=== PATIENT | male | born 1945 | race Caucasian/White ===

== ENCOUNTER 2018-12-20 08:27 | Day surgery (SDC) | payer MEDICARE, BC ==
[2018-12-20] MEDS ORDERED: CEFAZOLIN SODIUM IN 0.9 % NACL 2 GM/100 ML BAG IV ONE (08:35)
[2018-12-20] MEDS ORDERED: LACTATED RINGERS 1,000 ML IV ONE ×2 (08:58→11:30)
--- NOTE | 2018-12-20 09:48 | ANESTHESIA ---
Pre-Anesthesia VS, & Labs - Diagnosis Left inguinal hernia - Procedure Left inguinal herniorraphy Vital Signs: Temp Pulse Resp BP Pulse Ox 37 C 72 20 132/77 H 96 12/20/18 08:53 12/20/18 08:53 12/20/18 08:53 12/20/18 08:53 12/20/18 08:53 Height 5 ft 9 in Weight (kg) 90 kg - NPO >8 hours Home Medications and Allergies Home Medications: Ambulatory Orders Acyclovir 200 mg DAILY 12/19/18 Atorvastatin [Lipitor] 10 mg PO DAILY 12/19/18 Celecoxib [CeleBREX] 100 mg PO DAILY 12/19/18 Acyclovir 200 mg DAILY 12/19/18 Atorvastatin [Lipitor] 10 mg PO DAILY 12/19/18 Celecoxib [CeleBREX] 100 mg PO DAILY 12/19/18 Pantprzole Allergies/Adverse Reactions: Allergies Allergy/AdvReac Type Severity Reaction Status Date / Time No Known Drug Allergies Allergy Verified 12/19/18 13:34 Anes History & Medical History - Anesthetic History Anesthesia Complications: reports: No previous complications - Medical History Cardiovascular: reports: Coronary artery disease ([employer]) Pulmonary: reports: Sleep apnea (does not use CPAP) Gastrointestinal: reports: GERD (controlled with medication), Hiatal hernia Urinary: reports: Benign prostate hypertrophy Neuro: reports: Peripheral neuropathy (Kumar. lower feet) Musculoskeletal: reports: Osteoarthritis Endocrine/Autoimmune: reports: None Blood Disorders: reports: None Skin: reports: None Smoking Status: Never smoker Psychosocial: reports: Depression - Surgical History Cardiothoracic: Coronary stent Orthopedic: Knee replacement, Spine surgery (ACDF C4-7, Laminectomy L5-S1), Other Exam General: Alert, Oriented x3, Cooperative, No acute distress Dental: WNL Mouth Openin Fingerbreadth Neck Mobility: Normal Mallampati classification: I Thyromental Distance: greater than 6 cm Respiratory: Lungs clear, Normal breath sounds, No respiratory distress, No accessory muscle use Cardiovascular: Regular rate, Normal S1, Normal S2, No murmurs Mental/Cognitive Status: Alert/Oriented X3, Normal for patient Plan Anesthesia Type: General Consent for Procedure(s) Verified and Reviewed: Yes Code Status: Attempt Resuscitation ASA classification: 3-Severe systemic disease Is this case an emergency?: No
[2018-12-20] MEDS ORDERED: BUPIVACAINE 0.5% PF 10 ML VIAL ONE (10:33)
[2018-12-20] MEDS ORDERED: DEXAMETHASONE 4 MG/ML VIAL IVP ONE (11:30)
[2018-12-20] MEDS ORDERED: KETOROLAC 30 MG/ML VIAL IVP ONE (11:30)
[2018-12-20] MEDS ORDERED: ONDANSETRON 4 MG/2 ML VIAL IVP ONE (11:30)
[2018-12-20] MEDS ORDERED: LIDOCAINE-MPF 2% 5 ML VIAL IM ONE (11:30)
[2018-12-20] MEDS ORDERED: ePHEDrine 50 MG/ML VIAL IVP ONE (11:30)
[2018-12-20] MEDS ORDERED: fentaNYL 100 MCG/2 ML VIAL IVP ONE (11:30)
[2018-12-20] MEDS ORDERED: PROPOFOL 200 MG/20 ML VIAL IVP ONE (11:30)
[2018-12-20] MEDS ORDERED: MIDAZOLAM 2 MG/2 ML VIAL IVP ONE (11:30)
[2018-12-20] MEDS ORDERED: ACETAMINOPHEN 1,000 MG/100 ML 100 ML IV ONE (11:30)
[2018-12-20] MEDS ORDERED: BUPIVACAINE 0.5% PF 10 ML VIAL INFIL ONE ×2 (11:40→12:06)
[2018-12-20] MEDS ORDERED: HYDROcod/ACETAM 5/325 MG TABLET PO PRN (12:21)
[2018-12-20] MEDS ORDERED: ONDANSETRON 4 MG/2 ML VIAL IVP PRN (12:21)
[2018-12-20] MEDS ORDERED: HYDROmorphone 0.5 MG/0.5 ML SYRINGE IVP PRN (12:21)
--- NOTE | 2018-12-20 12:31 | OPERATIVE REPORT ---
Operative Report - General Procedure Date: 12/20/18 Planned Procedure: Left inguinal herniorrhaphy Pre-Op Diagnosis: Left inguinal hernia Procedure Performed: Left indirect inguinal herniorrhaphy with mesh, excision cord lipoma Post Op Diagnosis: Left indirect inguinal hernia, cord lipoma - Procedure Note Primary Surgeon: Roc Mendoza MD Anesthesia Provider: Bret Bryan CRNA Anesthesia Technique: General LMA, Local (30 mL of half percent Marcaine) IV Fluids (mL): 900 Estimated Blood Loss (mL): 5 Drain/Tube Type: Other (None.) Complications: None. - Other Other Information/Narrative: OPERATIVE DESCRIPTION/REPORT: After verbal and written informed consent was obtained detailing the risks of infection, bleeding requiring transfusion with its risks, nerve injury, and , and after I met with the patient confirming the surgery and the site of the surgery and after initialing the site of the surgery with a surgical marker, the patient was brought to the operative suite and placed supine on the operating table. Great care was taken to avoid pressure points to prevent pressure necrosis or nerve injury. Monitoring devices were applied along with TEDs and pneumatic compressive stockings (to prevent DVT). The patient received preoperative antibiotics for surgical prophylaxis. Bret Bryan CRNA sedated and anesthetized the patient for the entire procedure. The patient was prepped and draped in the usual sterile manner. With the patient draped my initials were clearly visible. A "time in" then confirmed that the patient was identified with 3 identifiers (name, date and medical record number), the history and physical was in the chart, the signed consent confirming the procedure was in the chart, the patient was in the correct position, the aforementioned prophylactic measures were in place or given, we had the correct personnel and equipment to complete the procedure and that anesthesia, surgery and nursing were given an opportunity to express any concerns. With the agreement of everyone in the room, we proceeded with the operation. A standard inguinal incision was made and dissection was carried down to the external oblique aponeurosis using a combination of Metzenbaum scissors and Bovie electrocautery. The external oblique aponeurosis was cleared of overlying adherent tissue, and the external ring was delineated. The external oblique was the incised with a scalpel and this incision was carried out to the external ring using Metzenbaum scissors. Having exposed the inguinal canal, the cord structures were from the canal using blunt dissection, and a [place] drain was placed around the cord structures at the level of the pubic tubercle. This Rissa drain was then used to retract the cord structures as needed. Ad herent cremasteric muscle was dissected free from the cord using Bovie electrocautery. The cord was then explored using a combination of sharp and blunt dissection, and the sac was found anteromedially to the cord structures. The sac was exceedingly enlarged and contained both omentum and bowel. The sac was dissected free from the cord structures using a combination of blunt dissection and Bovie electrocautery. Once preperitoneal fat was encountered, the dissection stopped and the sac was replaced back into the abdominal cavity. The hernia was a sliding inguinal hernia. Dissection along the cord structures found a lipoma that was dissected back to the internal ring, ligated with a 3-0 Vicryl, transected, the stump cauterized and allowed to retract back into the abdomen. An extra-large Bard Perfix plug (Ref# [id number], Lot# [id number], use date 2023-10-02) inserted into the internal ring. The plug was secured to the internal ring by interrupted 2-0 PDS sutures. The Bard Perfix enlay patch was then placed on the floor of the inguinal canal and secured in place using interrupted 0 PDS sutures to the conjoined tendon superiorly, pubic tubercle medially, and shelving edge inferiorly. By reinforcing the floor with the enlay patch, a new internal ring was thus formed. The [place] drain was removed. The wound was then irrigated using sterile saline, and hemostasis was obtained using Bovie electrocautery. The incision in the external oblique was approximated using a 3-0 Vicryl in a running fashion, thus reforming the external ring. The fascia and skin was then injected with the 1/2% marcaine for grinder operator tool pain control. The skin incision was approximated with 4-0 Monocryl in a subcuticular fashion. The skin was cleaned of the prep and Dermabond was applied. At this point a time out was performed that confirmed that all the counts were correct, the procedure that was performed, the blood loss, the IV fluids administered, and the patients condition. A dressing was t hen applied. Gentle downward traction ensured that the testes were well seated in the scrotum. Having tolerated the procedure well, the patient was taken to short stay in good and stable condition. Dragon disclaimer: This document was created in part using voice recognition technology. Because of the inherent limitations of the system ([employer] Dict[employer] user manual states that the licensee understands that speech recognition is a statistical process and that recognition errors are inherent in the process), occasional same sounding word substitutions and grammatical errors do occur and persist despite proofreading. Please read this document for context.
[2018-12-20 13:25] VITALS: BP 133/78
== END 2018-12-20 08:28 | disposition home or self-care (01) ==
LOC: SDS 08:27
PROVIDERS: ATTEND Surgery
PROC: 0VBG0ZZ Excision of Left Spermatic Cord, Open Approach (ICD-10-PCS; 2018-12-20)
PROC: 0YU60JZ Supplement Left Inguinal Region with Synthetic Substitute, Open Approach (ICD-10-PCS; principal; 2018-12-20 10:00)
DX: K40.90 Unilateral inguinal hernia, without obstruction or gangrene, not specified as recurrent (principal); D17.6 Benign lipomatous neoplasm of spermatic cord; G47.30 Sleep apnea, unspecified; K21.9 Gastro-esophageal reflux disease without esophagitis; I25.10 Atherosclerotic heart disease of native coronary artery without angina pectoris; N40.0 Benign prostatic hyperplasia without lower urinary tract symptoms
CPT/HCPCS: 49525; 55520; C1781; J0131; J0690; J7120

== ENCOUNTER 2019-02-03 09:00 | Outpatient (CLI) | payer MEDICARE, BC ==
--- NOTE | 2019-02-03 13:46 | Ultrasound Report ---
Reason: TESTICULAR PAIN LEFT Procedure Date: 02/03/2019 Accession Number: [id number] / [id number] Procedure: US - Testicle CPT Code: FULL RESULT: EXAM: SCROTAL ULTRASOUND EXAM DATE: 02/03/2019 10:30 AM. CLINICAL HISTORY: Testicular pain left. COMPARISON: None. TECHNIQUE: Real-time scanning was performed with static images obtained. Color-flow images were utilized. FINDINGS: Right: Testis: 4.1 x 1.8 x 2.9 cm. Normal size and echotexture. No mass, calcification, or abnormal blood flow. Epididymis: 2.6 x 0.6 x 1.6 cm. Normal size and echotexture. No mass or abnormal blood flow. Hydrocele: Small hydrocele. Varicocele: None. Left: Testis: 4.0 x 1.9 x 2.4 cm. Normal size and echotexture. No mass, calcification, or abnormal blood flow. Epididymis: 1.8 x 0.6 x 2.0 cm. There is a benign 7 mm maximal diameter epididymal cyst of no significance. Hydrocele: Moderate hydrocele. Varicocele: Left hydrocele is present. Other: The patient is status post left inguinal hernia repair. There is a recurrent fat-containing left inguinal hernia measuring approximately 3.0 x 1.4 cm diameter in sagittal plane; the neck is approximately 10 mm in width and the hernia cannot be reduced. IMPRESSION: 1. No evidence of testicular neoplasm. 2. Moderate left hydrocele and left varicocele. 3. Tiny benign left epididymal cyst of no significance. 4. Small recurrent fat-containing left inguinal hernia. RADIA
== END 2019-02-03 09:01 | disposition home or self-care (01) ==
LOC: DI 09:00
PROVIDERS: ATTEND Internal Medicine Gastroenterology
DX: N43.3 Hydrocele, unspecified (principal); I86.1 Scrotal varices; K40.91 Unilateral inguinal hernia, without obstruction or gangrene, recurrent
CPT/HCPCS: 76870

== ENCOUNTER 2020-01-28 07:00 | Outpatient (CLI) | payer MEDICARE, BC ==
[2020-01-28 11:55] LABS: BASOPHILS % (AUTO) 0.6 %; EOSINOPHILS # (AUTO) 0.2 10^3/uL (0.0-0.7); EOSINOPHILS % (AUTO) 2.3 %; HGB - HEMOGLOBIN 16.1 g/dL (14.0-18.0); LYMPHOCYTES # (AUTO) 1.2 10^3/uL (1.5-3.5); LYMPHOCYTES % (AUTO) 18.7 %; MEAN CORPUSCULAR HEMOGLOBIN 31.8 pg (27.0-31.0); MEAN CORPUSCULAR HGB CONC 33.6 g/dL (32.0-36.0); MEAN CORPUSCULAR VOLUME 94.5 fL (80.0-94.0); MONOCYTES # (AUTO) 0.4 10^3/uL (0.0-1.0); MONOCYTES % (AUTO) 6.5 %; NEUTROPHILS # (AUTO) 4.8 10^3/uL (1.5-6.6); NEUTROPHILS % (AUTO) 71.6 %; PLT - PLATELET COUNT 223 10^3/uL (130-450); RED BLOOD COUNT 5.07 10^6/uL (4.70-6.10); RED CELL DISTRIBUTION WIDTH 12.9 % (12.0-15.0); WHITE BLOOD COUNT 6.6 x10^3/uL (4.8-10.8)
[2020-01-28 12:17] LABS: ALBUMIN 4.4 g/dL (3.2-5.5); ALBUMIN/GLOBULIN RATIO 1.6 (1.0-2.2); ALKALINE PHOSPHATASE 65 IU/L (42-121); ALT ALANINE AMINOTRANSFERASE 30 IU/L (10-60); AST ASPARTATE AMINOTRANSFERASE 25 IU/L (10-42); BILIRUBIN,TOTAL 0.9 mg/dL (0.2-1.0); BUN - BLOOD UREA NITROGEN 11 mg/dL (6-20); CALCIUM 9.4 mg/dL (8.5-10.3); CARBON DIOXIDE - CO2 29 mmol/L (21-32); CHLORIDE 104 mmol/L (101-111); CHOL/HDL RATIO 2.6 (<5.0); CHOLESTEROL 110 mg/dL; GLUCOSE 99 mg/dL (70-100); HDL CHOLESTEROL 42 mg/dL; LDL CHOLESTEROL,CALCULATED 43 mg/dL; SODIUM 139 mmol/L (135-145); TOTAL PROTEIN 7.1 g/dL (6.7-8.2); VLDL CHOLESTEROL 25 mg/dL
== END 2020-01-28 23:59 | disposition home or self-care (01) ==
LOC: LAB.WCP 07:00
PROVIDERS: ATTEND Nurse Practitioner
DX: E78.5 Hyperlipidemia, unspecified (principal); R53.83 Other fatigue; G60.9 Hereditary and idiopathic neuropathy, unspecified; K40.91 Unilateral inguinal hernia, without obstruction or gangrene, recurrent; K21.9 Gastro-esophageal reflux disease without esophagitis
CPT/HCPCS: 36415; 80053; 80061; 82607; 83721; 84403; 85025

== ENCOUNTER 2020-05-20 20:30 | Outpatient (CLI) | payer MEDICARE, BC | END 2020-05-20 20:31 | disposition critical access hospital (66) | LOC: EMS 20:30 | PROVIDERS: ATTEND Surgery | DX: R44.1 Visual hallucinations (principal); Z59.0 Homelessness | CPT/HCPCS: A0425; A0429 ==

== ENCOUNTER 2020-05-20 21:02 | Emergency (ER) | payer MEDICARE, BC ==
[2020-05-20] MEDS ORDERED: SODIUM CHLORIDE 0.9% 1,000 ML IV STA ×2 (21:16→23:15)
[2020-05-20 21:21] LABS: BASOPHILS % (AUTO) 0.5 %; EOSINOPHILS # (AUTO) 0.2 10^3/uL (0.0-0.7); EOSINOPHILS % (AUTO) 1.9 %; HGB - HEMOGLOBIN 14.3 g/dL (14.0-18.0); LYMPHOCYTES # (AUTO) 1.1 10^3/uL (1.5-3.5); LYMPHOCYTES % (AUTO) 13.6 %; MEAN CORPUSCULAR HEMOGLOBIN 31.8 pg (27.0-31.0); MEAN CORPUSCULAR HGB CONC 33.3 g/dL (32.0-36.0); MEAN CORPUSCULAR VOLUME 95.3 fL (80.0-94.0); MEAN PLATELET VOLUME 10.1 fL (7.4-11.4); MONOCYTES # (AUTO) 0.6 10^3/uL (0.0-1.0); MONOCYTES % (AUTO) 7.2 %; NEUTROPHILS % (AUTO) 76.5 %; PLT - PLATELET COUNT 226 10^3/uL (130-450); RED CELL DISTRIBUTION WIDTH 13.2 % (12.0-15.0); WHITE BLOOD COUNT 7.8 x10^3/uL (4.8-10.8)
[2020-05-20 21:28] LABS: INR 1.3 (0.8-1.2); PT - PROTHROMBIN TIME 13.8 secs (9.9-12.6)
[2020-05-20 21:32] LABS: ALBUMIN 3.9 g/dL (3.2-5.5); ALBUMIN/GLOBULIN RATIO 1.4 (1.0-2.2); BILIRUBIN,TOTAL 0.5 mg/dL (0.2-1.0); CALCIUM 9.2 mg/dL (8.5-10.3); CREATININE 1.1 mg/dL (0.6-1.2); TOTAL PROTEIN 6.7 g/dL (6.7-8.2)
--- NOTE | 2020-05-20 21:41 | CT Report ---
PROCEDURE: HEAD WO INDICATIONS: hallucinations after fall plavix TECHNIQUE: Noncontrast 4.5 mm thick angled axial sections acquired from the foramen magnum to the vertex. For r adiation dose reduction, the following was used: automated exposure control, adjustment of mA and/or kV according to patient size. COMPARISON: None. FINDINGS: Image quality: Excellent. CSF spaces: Basal cisterns are patent. No extra-axial fluid collections. Ventricles are normal in size and shape. Brain: No midline shift. No intracranial masses or hemorrhage. Wood-white matter interface is norm al. Skull and face: Calvarium and visualized facial bones are intact, without suspicious lesions. Sinuses: Mucosal thickening noted in the left maxillary sinus. Mastoids are clear. IMPRESSION: No acute intracranial disease process. Reviewed by: Thea Menjivar MD, PhD on 05/20/2020 9:40 PM PST Approved by: Thea Menjivar MD, PhD on 05/20/2020 9:40 PM PST Station ID: [id number]
--- NOTE | 2020-05-20 21:46 | CT Report ---
PROCEDURE: CERVICAL SPINE WO INDICATIONS: fall head injury TECHNIQUE: Noncontrast 3 mm thick sections acquired from the skull base to the T4 level. Sagittal and coronal r eformats were then constructed. For radiation dose reduction, the following was used: automated exp osure control, adjustment of mA and/or kV according to patient size. COMPARISON: None. FINDINGS: Image quality: Excellent. Bones: Status post C4-C7 ACDF. Orthopedic hardware is intact. No lucencies the bone hardware interfa ce. No fractures or dislocations. Visualized superior ribs are intact. Soft tissues: Prevertebral soft tissues are normal in thickness. No paravertebral hematomas. No ap ical pneumothoraces. IMPRESSION: No fracture. No osseous lesion. If there are persistent symptoms or continued clinical concern for pa thology, then repeat plain film radiographs (7-10 days) or advanced imaging (CT, MR, bone scan) shoul d be considered for further evaluation. Reviewed by: Thea Menjivar MD, PhD on 05/20/2020 9:45 PM PST Approved by: Thea Menjivar MD, PhD on 05/20/2020 9:45 PM PST Station ID: [id number]
[2020-05-20] MEDS ORDERED: POTASSIUM CHLORIDE 20 MEQ TABLET PO STA (21:59)
--- NOTE | 2020-05-20 21:59 | ED Physician Documentation ---
PD HPI HEAD INJURY - Stated complaint Stated Complaint: HALLUCINATIONS - Chief complaint Chief Complaint: Trauma Hd/Nk - History of Present Illness Mechanism of head injury: Fell Where head injury occurred: Home Timing - onset: How many days ago (4) Location of injury: Back Associated symptoms: Neck pain, Other (hallucinations). No: LOC, AMS, Amnesia, Nausea / vomiting, Paresthesias, Seizures, Ear drainage, Nasal drainage Symptoms improve with: Rest Symptoms worsen with: Palpation, Movement Contributing factors: Anticoagulated (was on plavix) Similar symptoms before: Has not had sx before Recently seen: Not recently seen - Additional information Additional information: Previously well 74-year-old male has become homeless and he is living in his van. 4 days ago he has had a fall injuring his head and neck and he has begun to have hallucinations. He describes visual hallucinations similar to what he is had when he had to take some oxycodone previously. He states that he is not taking any drugs currently. Review of Systems Constitutional: reports: Fatigue. denies: Fever, Chills Eyes: denies: Decreased vision Ears: denies: Ear pain Nose: denies: Rhinorrhea / runny nose, Congestion Throat: denies: Sore throat Cardiac: denies: Chest pain / pressure, Palpitations Respiratory: denies: Dyspnea, Cough GI: reports: Diarrhea. denies: Nausea, Vomiting : denies: Dysuria, Frequency Skin: denies: Rash Musculoskeletal: reports: Neck pain, Extremity pain (cramping in the thighs.). denies: Back pain Neurologic: denies: Generalized weakness, Focal weakness, Numbness Psychiatric: reports: Hallucinations (visual) PD PAST MEDICAL HISTORY - Past Medical History Cardiovascular: Coronary artery disease Respiratory: Sleep apnea Neuro: Peripheral neuropathy Endocrine/Autoimmune: None GI: GERD, Hiatal hernia : Benign prostate hypertrophy HEENT: Other Psych: None Musculoskeletal: Osteoarthritis Derm: None - Past Surgical History Ortho: Knee replacement, Spine surgery, Other Cardiovascular: Coronary stent - Present Medications Home Medications: Ambulatory Orders Medication Instructions Recorded Confirmed Acyclovir 200 mg DAILY 12/19/18 12/20/18 Atorvastatin [Lipitor] 10 mg PO DAILY 12/19/18 12/19/18 Celecoxib [CeleBREX] 100 mg PO DAILY 12/19/18 05/20/20 Docusate Sodium 250Mg Capsule 250 mg PO DAILY #10 capsule 12/20/18 [Colace 250Mg Capsule] HYDROcod/ACETAM 5/325 [Gunlock 5/325] 1 each PO Q4H #20 tablet 12/20/18 HYDROcod/ACETAM 5/325 [Gunlock 5/325] 1 each PO Q4H #20 tablet 12/20/18 - Allergies Allergies/Adverse Reactions: Allergies Allergy/AdvReac Type Severity Reaction Status Date / Time No Known Drug Allergies Allergy Verified 05/20/20 21:16 - Social History Does the pt smoke?: No Smoking Status: Never smoker Does the pt have substance abuse?: No PD ED PE NORMAL - Vitals Vital signs reviewed: Yes (Hypertensive) - General General: Alert and oriented X 3, No acute distress, Well developed/nourished - HEENT HEENT: Atraumatic, PERRL, EOMI - Neck Neck: Supple, no meningeal sign, Other (Mild point tenderness to the posterior aspect of the neck.) - Cardiac Cardiac: RRR, No murmur - Respiratory Respiratory: No respiratory distress, Clear bilaterally - Abdomen Abdomen: Soft, Non tender - Back Back: No CVA TTP, No spinal TTP - Derm Derm: Normal color, Warm and dry, No rash - Extremities Extremities: No deformity, No edema - Neuro Neuro: Alert and oriented X 3, supervisor mapping 2-12 intact, No motor deficit, No sensory deficit, Normal speech Eye Opening: Spontaneous Motor: Obeys Commands Verbal: Oriented GCS Score: 15 - Psych Psych: Normal mood, Normal affect Results - Vitals Vitals: Vital Signs - 24 hr 05/20/20 05/20/20 05/20/20 21:11 21:17 21:53 Temperature 37.1 C 37.1 C Heart Rate 95 95 83 Respiratory 24 24 21 Rate Blood Pressure 172/98 H 172/98 H 135/78 H O2 Saturation 95 98 96 05/20/20 05/20/20 05/21/20 23:09 23:31 00:00 Temperature 37.1 C Heart Rate 74 84 69 Respiratory 16 24 17 Rate Blood Pressure 119/74 146/81 H 141/87 H O2 Saturation 97 97 95 05/21/20 00:30 Temperature 37.1 C Heart Rate 70 Respiratory 17 Rate Blood Pressure 141/89 H O2 Saturation 96 Oxygen O2 Source Room air - Labs Labs: Laboratory Tests 05/20/20 05/20/20 05/20/20 21:06 21:06 21:06 WBC 7.8 RBC 4.50 L Hgb 14.3 Hct 42.9 MCV 95.3 H MCH 31.8 H MCHC 33.3 RDW 13.2 Plt Count 226 MPV 10.1 Neut # (Auto) 6.0 Lymph # (Auto) 1.1 L [place] # (Auto) 0.6 Eos # (Auto) 0.2 Baso # (Auto) 0.0 Absolute Nucleated RBC 0.00 Nucleated RBC % 0.0 PT 13.8 H INR 1.3 H Sodium 141 Potassium 3.0 L Chloride 104 Carbon Dioxide 26 Anion Gap 11.0 BUN 12 Creatinine 1.1 Estimated GFR (MDRD) 65 L Glucose 123 H Calcium 9.2 Total Bilirubin 0.5 AST 23 ALT 21 Alkaline Phosphatase 76 Total Protein 6.7 Albumin 3.9 Globulin 2.8 Albumin/Globulin Ratio 1.4 Lipase 44 Urine Color Urine Clarity Urine pH Ur Specific [place] Urine Protein Urine Glucose (UA) Urine Ketones Urine Occult Blood Urine Nitrite Urine Bilirubin Urine Urobilinogen Ur Leukocyte Esterase Ur Microscopic Review Urine Culture Comments Urine Opiates Screen Ur Oxycodone Screen Urine Methadone Screen Ur Propoxyphene Screen Ur Barbiturates Screen Ur Tricyclics Screen Ur Phencyclidine Scrn Ur Amphetamine Screen U Methamphetamines Scrn U Benzodiazepines Scrn Urine Cocaine Screen U Cannabinoids Screen 05/20/20 05/20/20 23:20 23:20 WBC RBC Hgb Hct MCV MCH MCHC RDW Plt Count MPV Neut # (Auto) Lymph # (Auto) [place] # (Auto) Eos # (Auto) Baso # (Auto) Absolute Nucleated RBC Nucleated RBC % PT INR Sodium Potassium Chloride Carbon Dioxide Anion Gap BUN Creatinine Estimated GFR (MDRD) Glucose Calcium Total Bilirubin AST ALT Alkaline Phosphatase Total Protein Albumin Globulin Albumin/Globulin Ratio Lipase Urine Color YELLOW Urine Clarity CLEAR Urine pH 6.0 Ur Specific [place] 1.020 Urine Protein NEGATIVE Urine Glucose (UA) NEGATIVE Urine Ketones NEGATIVE Urine Occult Blood NEGATIVE Urine Nitrite NEGATIVE Urine Bilirubin NEGATIVE Urine Urobilinogen 1 (NORMAL) Ur Leukocyte Esterase NEGATIVE Ur Microscopic Review NOT INDICATED Urine Culture Comments NOT INDICATED Urine Opiates Screen NEGATIVE Ur Oxycodone Screen NEGATIVE Urine Methadone Screen NEGATIVE Ur Propoxyphene Screen NEGATIVE Ur Barbiturates Screen NEGATIVE Ur Tricyclics Screen NEGATIVE Ur Phencyclidine Scrn NEGATIVE Ur Amphetamine Screen NEGATIVE U Methamphetamines Scrn NEGATIVE U Benzodiazepines Scrn NEGATIVE Urine Cocaine Screen NEGATIVE U Cannabinoids Screen NEGATIVE - Rads (name of study) CT head Radiology: Prelim report reviewed (Impression: No acute intracranial disease process.), EMP read indepedently, See rad report Cervical spine Radiology: Prelim report reviewed (Impression: No fracture. No osseous lesion.), EMP read indepedently, See rad report Procedures - IVC sono (time) 2129 Bedside IVC sono: IVC measures (cm) (0.87), Dehydration (est 2 liter deficit) PD MEDICAL DECISION MAKING - ED course Complexity details: reviewed results, re-evaluated patient, considered differential, d/w patient ED course: 74-year-old male with a head injury 4 days ago has complained of acute hallucinations. He is complaining of visual hallucinations similar to what he is had when he has had narcotic previously. He denies any use of drug and states that he is not going through alcohol withdrawal states that he drinks 5-6 beers every few months. He is found to be dehydrated on interrogation of the inferior vena cava and he attributes this to a meal of meade that he had as a take out that resulted in excessive diarrhea. The patient is complaining of some cramping in his thighs and he is found to be dehydrated on interrogation the inferior vena cava. He is administered intravenous fluids he is found to have a low potassium and is given potassium orally as well. The patient has had a fall 4 days ago Where he was trying to retrieve a ladder from the top of the van about 7 feet up and the ladders secure strap was not attached. He fell hit his head right shoulder and left knee. Today we have concentrated on his hallucination and head injury and we found he is under significant stress as a homeless 75 y/o living in his van and dehydrated. We did not find drugs or alcohol involved. We did hydrate him and he would like to take the rest of his questions and concerns to Daksha Painter whom he has identified as his primary and feels she is thorough and competent. Departure - Departure Disposition: 01 Home, Self Care Clinical Impression: Dehydration, Stress reaction Concussion Qualifiers: Encounter type: initial encounter Loss of consciousness presence/duration: without LOC Qualified Code(s): S06.0X0A - Concussion without loss of consciousness, initial encounter Condition: Stable Instructions: ED Dehydration, ED Stress React, ED Concussion Follow-Up: Daksha Painter ARNP, ARTS ADMINISTRATOR-C [Primary Care Provider] -
[2020-05-20 23:28] LABS: BILIRUBIN,URINE NEGATIVE (NEGATIVE); GLUCOSE, URINE (UA) NEGATIVE (NEGATIVE); KETONES,URINE (UA) NEGATIVE (NEGATIVE); LEUKOCYTE ESTERASE, URINE NEGATIVE (NEGATIVE); NITRITE,URINE NEGATIVE (NEGATIVE); OCCULT BLOOD,URINE NEGATIVE (NEGATIVE); PROTEIN,URINE NEGATIVE (NEGATIVE); UROBILINOGEN,URINE 1 (NORMAL) E.U./dL (NORMAL)
[2020-05-20 23:29] LABS: CLARITY,URINE CLEAR (CLEAR)
[2020-05-21 00:08] LABS: MUDS CUTOFF CONCENTRATIONS CUTOFF CONC BELOW:
[2020-05-21 00:18] LABS: AMPHETAMINE SCREEN,URINE NEGATIVE (NEGATIVE); BENZODIAZEPINES SCREEN, URINE NEGATIVE (NEGATIVE); COCAINE SCREEN URINE NEGATIVE (NEGATIVE); METHADONE SCREEN, URINE NEGATIVE (NEGATIVE); METHAMPHETAMINES SCREEN, URINE NEGATIVE (NEGATIVE); OPIATE SCREEN, URINE NEGATIVE (NEGATIVE); OXYCODONE SCREEN, URINE NEGATIVE (NEGATIVE); PROPOXYPHENE SCREEN, URINE NEGATIVE (NEGATIVE); TRICYCLIC ANTIDEPRESSANT,URINE NEGATIVE (NEGATIVE)
[2020-05-21 02:37] VITALS: BP 143/83
== END 2020-05-21 02:30 | disposition home or self-care (01) ==
LOC: EDUNIT# → ED 21:02
DX: S06.0X0A Concussion without loss of consciousness, initial encounter (principal); W17.89XA Other fall from one level to another, initial encounter; F43.9 Reaction to severe stress, unspecified; E86.0 Dehydration; Z59.0 Homelessness
CPT/HCPCS: 36415; 70450; 72125; 80053; 80306; 81003; 83690; 85025; 85610; 96360; 96361; 99284; A9270; 81001; 87086

== ENCOUNTER 2020-05-27 10:22 | Emergency (ER) | payer MEDICARE, BC ==
[2020-05-27 12:04] LABS: BASOPHILS % (AUTO) 0.6 %; EOSINOPHILS # (AUTO) 0.1 10^3/uL (0.0-0.7); HGB - HEMOGLOBIN 15.8 g/dL (14.0-18.0); LYMPHOCYTES # (AUTO) 1.3 10^3/uL (1.5-3.5); MEAN CORPUSCULAR HEMOGLOBIN 31.7 pg (27.0-31.0); MEAN CORPUSCULAR HGB CONC 33.5 g/dL (32.0-36.0); MEAN CORPUSCULAR VOLUME 94.8 fL (80.0-94.0); MEAN PLATELET VOLUME 9.5 fL (7.4-11.4); MONOCYTES # (AUTO) 0.5 10^3/uL (0.0-1.0); MONOCYTES % (AUTO) 7.2 %; NEUTROPHILS # (AUTO) 4.9 10^3/uL (1.5-6.6); NEUTROPHILS % (AUTO) 70.9 %; PLT - PLATELET COUNT 277 10^3/uL (130-450); RED BLOOD COUNT 4.98 10^6/uL (4.70-6.10); WHITE BLOOD COUNT 6.9 x10^3/uL (4.8-10.8)
[2020-05-27 12:18] LABS: ACETAMINOPHEN < 10 ug/mL (10-30); ALBUMIN 4.3 g/dL (3.2-5.5); ALBUMIN/GLOBULIN RATIO 1.4 (1.0-2.2); ALKALINE PHOSPHATASE 96 IU/L (42-121); ALT ALANINE AMINOTRANSFERASE 27 IU/L (10-60); AST ASPARTATE AMINOTRANSFERASE 33 IU/L (10-42); BILIRUBIN,TOTAL 0.9 mg/dL (0.2-1.0); BUN - BLOOD UREA NITROGEN 9 mg/dL (6-20); CALCIUM 9.4 mg/dL (8.5-10.3); CARBON DIOXIDE - CO2 28 mmol/L (21-32); CHLORIDE 103 mmol/L (101-111); CREATININE 0.9 mg/dL (0.6-1.2); GLUCOSE 126 mg/dL (70-100); LIPASE 33 U/L (22-51); SALICYLATE < 6.0 mg/dL; TOTAL PROTEIN 7.3 g/dL (6.7-8.2)
--- NOTE | 2020-05-27 12:52 | ED Physician Documentation ---
History of Present Illness - Stated complaint Stated Complaint: MHE - Chief complaint Chief Complaint: MHE - Additonal information Additional information: 74-year-old male presents the emergency department for evaluation of recurrent hallucinations. He reports that for about the last week he sees visions and figures that he knows are not there. He sometimes describes them as evil and feels that they may try to attack him. He does not hear voices and he does not feel that these visions command him to do anything but he is fearful of them. He reports that he had a similar incident about 10 to 15 years ago when he had knee surgery and received opiates. This gentleman was seen in this ER for similar about 1 week ago his work-up at that time was negative and he was advised to follow-up with his primary care provider. He is currently working in construction full-time and mostly living in his van though sometimes he does stay with friends or at the houses of clients. He denies thoughts of self-harm or harm to others. He states that he has gotten increasingly forgetful and sometimes fails to take his routine medications Past medical history includes neuropathy, significant spinal degenerative changes with multiple areas of fusion, coronary artery disease status post stenting. Meds: Plavix, omeprazole, daily vitamins Review of Systems Constitutional: reports: Reviewed and negative Eyes: reports: Reviewed and negative Ears: reports: Reviewed and negative Nose: reports: Reviewed and negative Throat: reports: Reviewed and negative Cardiac: reports: Reviewed and negative Respiratory: reports: Reviewed and negative GI: reports: Reviewed and negative : reports: Reviewed and negative Skin: reports: Reviewed and negative Musculoskeletal: reports: Neck pain, Back pain Psychiatric: reports: Hallucinations, Anxiety, Insomnia. denies: Depressed, Suicidal, Homicidal, Delusions Endocrine: reports: Reviewed and negative Immunocompromised: reports: Reviewed and negative PD PAST MEDICAL HISTORY - Past Medical History Cardiovascular: Coronary artery disease Respiratory: Sleep apnea Neuro: Peripheral neuropathy Endocrine/Autoimmune: None GI: GERD, Hiatal hernia : Benign prostate hypertrophy HEENT: Other Psych: None Musculoskeletal: Osteoarthritis Derm: None - Past Surgical History Ortho: Knee replacement, Spine surgery, Other Cardiovascular: Coronary stent - Present Medications Home Medications: Ambulatory Orders Medication Instructions Recorded Confirmed Acyclovir 200 mg DAILY 12/19/18 05/27/20 Atorvastatin [Lipitor] 10 mg PO DAILY 12/19/18 05/27/20 Celecoxib [CeleBREX] 100 mg PO DAILY 12/19/18 05/27/20 HYDROcod/ACETAM 5/325 [Karthaus 5/325] 1 each PO Q4H PRN 05/27/20 05/27/20 risperiDONE [Risperdal] 1 mg PO QPM 7 Days #14 tablet 05/27/20 - Allergies Allergies/Adverse Reactions: Allergies Allergy/AdvReac Type Severity Reaction Status Date / Time No Known Drug Allergies Allergy Verified 05/27/20 10:33 - Social History Does the pt smoke?: No Smoking Status: Never smoker Does the pt have substance abuse?: No PD ED PE EXPANDED - General General: Alert, No acute distress, Well developed/nourished - HEENT HEENT: Atraumatic, PERRL - Neck Neck: Supple w/out meningeal sx. No: Adenopathy - Cardiac Cardiac: Regular Rate, Regular Rhythm, Radial strong equal, Cap refill < 2 sec. No: Murmur Present - Respiratory Respiratory: Clear to ausultation simone. No: Distress, Labored - Abdomen Abdomen: Normal Bowel sounds. No: Tender to palpation - Neuro Neuro: Alert and Oriented X 3, CNII-XII intact, Cerebellar nl, Normal gait, Normal finger nose - GCS Eye Opening: Spontaneous Motor: Obeys Commands Verbal: Oriented Total: 15 - Psych Psych: Normal. No: Visual hallucinations (Denies any visual hallucinations at the time of his visit here in the emergency department) Results - Vitals Vitals: Vital Signs - 24 hr 05/27/20 05/27/20 10:33 14:23 Temperature 36.5 C Heart Rate 90 92 Respiratory 16 20 Rate Blood Pressure 137/67 H 130/61 O2 Saturation 96 Oxygen O2 Source Room air - Labs Labs: Laboratory Tests 05/27/20 05/27/20 05/27/20 11:56 11:56 11:56 WBC 6.9 RBC 4.98 Hgb 15.8 Hct 47.2 MCV 94.8 H MCH 31.7 H MCHC 33.5 RDW 13.0 Plt Count 277 MPV 9.5 Neut # (Auto) 4.9 Lymph # (Auto) 1.3 L Garden # (Auto) 0.5 Eos # (Auto) 0.1 Baso # (Auto) 0.0 Absolute Nucleated RBC 0.00 Nucleated RBC % 0.0 Sodium 139 Potassium 4.2 Chloride 103 Carbon Dioxide 28 Anion Gap 8.0 BUN 9 Creatinine 0.9 Estimated GFR (MDRD) 82 L Glucose 126 H Calcium 9.4 Total Bilirubin 0.9 AST 33 ALT 27 Alkaline Phosphatase 96 Total Protein 7.3 Albumin 4.3 Globulin 3.0 Albumin/Globulin Ratio 1.4 Lipase 33 TSH 0.32 L Urine Color Urine Clarity Urine pH Ur Specific [place] Urine Protein Urine Glucose (UA) Urine Ketones Urine Occult Blood Urine Nitrite Urine Bilirubin Urine Urobilinogen Ur Leukocyte Esterase Ur Microscopic Review Urine Culture Comments Salicylates < 6.0 Urine Opiates Screen Ur Oxycodone Screen Urine Methadone Screen Ur Propoxyphene Screen Acetaminophen < 10 L Ur Barbiturates Screen Ur Tricyclics Screen Ur Phencyclidine Scrn Ur Amphetamine Screen U Methamphetamines Scrn U Benzodiazepines Scrn Urine Cocaine Screen U Cannabinoids Screen Ethyl Alcohol < 5.0 05/27/20 14:24 WBC RBC Hgb Hct MCV MCH MCHC RDW Plt Count MPV Neut # (Auto) Lymph # (Auto) Garden # (Auto) Eos # (Auto) Baso # (Auto) Absolute Nucleated RBC Nucleated RBC % Sodium Potassium Chloride Carbon Dioxide Anion Gap BUN Creatinine Estimated GFR (MDRD) Glucose Calcium Total Bilirubin AST ALT Alkaline Phosphatase Total Protein Albumin Globulin Albumin/Globulin Ratio Lipase TSH Urine Color DARK YELLOW Urine Clarity CLEAR Urine pH 6.5 Ur Specific [place] 1.020 Urine Protein NEGATIVE Urine Glucose (UA) NEGATIVE Urine Ketones NEGATIVE Urine Occult Blood NEGATIVE Urine Nitrite NEGATIVE Urine Bilirubin NEGATIVE Urine Urobilinogen 2 H Ur Leukocyte Esterase NEGATIVE Ur Microscopic Review NOT INDICATED Urine Culture Comments NOT INDICATED Salicylates Urine Opiates Screen NEGATIVE Ur Oxycodone Screen NEGATIVE Urine Methadone Screen NEGATIVE Ur Propoxyphene Screen NEGATIVE Acetaminophen Ur Barbiturates Screen NEGATIVE Ur Tricyclics Screen NEGATIVE Ur Phencyclidine Scrn NEGATIVE Ur Amphetamine Screen NEGATIVE U Methamphetamines Scrn NEGATIVE U Benzodiazepines Scrn NEGATIVE Urine Cocaine Screen NEGATIVE U Cannabinoids Screen NEGATIVE Ethyl Alcohol PD MEDICAL DECISION MAKING - ED course Complexity details: reviewed results, re-evaluated patient, considered differential, d/w patient ED course: 74-year-old male presents to the emergency department for evaluation of recurrent hallucinations that had become a common thing for him over the last week. He reports that he sees evil things and sometimes they chased him. He does not feel that he is at risk to harm himself or others. He had a visit for similar about 1 week ago. The work-up at that time included a head CT that was unremarkable. His labs were also unremarkable. Today screening labs also without worry. 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 He does have a history of significant spinal canal spinal degenerative disc disease as well as previous fusion. He states to me that in the past he has had a n eurocognitive evaluation. Patient was developing evaluated by telepsych. They felt that the most likely cause of his hallucinations was hydrocodone that was listed on his med sheet however patient denies that he is taking hydrocodone. His urine tox is negative for opiates but the telepsych physician feels that hydrocodone and Karthaus are often missed on the standard urine drug screen. Patient did have a CT of his head 1 week ago with his initial ED presentation. There were no findings of a head bleed. He does recommend a cognitive evaluation for dementia. Telepsych does recommend starting risperidone 1 mg at night to help with hallucinations. Today in the emergency department there does not appear to be any electrolyte derangement. His neuro exam is unremarkable. I suspect that given his age he should obtain a second neurocognitive evaluation. I spoken with his primary care provider office and an appointment has been set up with Dr. Pleitez next week in order to help facilitate this. Patient was also seen by our social contact worker here in the emergency department. Patient feels safe for discharge home and is thankful to have a plan in place to help manage the hallucinations. No new medications will be ordered today. Emergent return precautions were discussed. Departure - Departure Disposition: 01 Home, Self Care Clinical Impression: Hallucinations Condition: Stable Follow-Up: MORENA PLEITEZ MD [Provider Admit Priv/Credential] - 06/02/20 10:00 am Prescriptions: risperiDONE [Risperdal] 1 mg PO QPM 7 Days #14 tablet Comments: You were seen today for hallicunations Your labs and drug screen were normal. Your CT scan of yoru head a week ago was normal. You were seen by a psychiatrist via the computer. They recommend starting risperidone 1 mg to be taken at night. Please make sure that you do not have an opiate medication like norco, hydrocodone, oxycodone in your posession. it may precipitate yoru hallicunations Please DO not miss the follow up appointment with Dr. Pleitez in [place] [address]/27/21 t discuss your symptoms and this ED visit. You may benefit from a neuro-cognitive evaluation. This is a referral to a neurologist and can take a few months to get set up If you ever feel unsafe, the hallucinations worsen or your fear for yoru safety, please return immediately to the ED
[2020-05-27 14:27] LABS: MUDS CUTOFF CONCENTRATIONS CUTOFF CONC BELOW:
[2020-05-27 14:35] LABS: BILIRUBIN,URINE NEGATIVE (NEGATIVE); GLUCOSE, URINE (UA) NEGATIVE (NEGATIVE); KETONES,URINE (UA) NEGATIVE (NEGATIVE); LEUKOCYTE ESTERASE, URINE NEGATIVE (NEGATIVE); NITRITE,URINE NEGATIVE (NEGATIVE); OCCULT BLOOD,URINE NEGATIVE (NEGATIVE); PH,URINE 6.5 PH (5.0-7.5); PROTEIN,URINE NEGATIVE (NEGATIVE); UROBILINOGEN,URINE 2 E.U./dL (NORMAL)
[2020-05-27 14:40] LABS: CLARITY,URINE CLEAR (CLEAR)
[2020-05-27 14:47] LABS: AMPHETAMINE SCREEN,URINE NEGATIVE (NEGATIVE); BENZODIAZEPINES SCREEN, URINE NEGATIVE (NEGATIVE); COCAINE SCREEN URINE NEGATIVE (NEGATIVE); METHADONE SCREEN, URINE NEGATIVE (NEGATIVE); METHAMPHETAMINES SCREEN, URINE NEGATIVE (NEGATIVE); OPIATE SCREEN, URINE NEGATIVE (NEGATIVE); OXYCODONE SCREEN, URINE NEGATIVE (NEGATIVE); PROPOXYPHENE SCREEN, URINE NEGATIVE (NEGATIVE); TRICYCLIC ANTIDEPRESSANT,URINE NEGATIVE (NEGATIVE)
[2020-05-27 16:30] VITALS: BP 139/77
== END 2020-05-27 16:32 | disposition home or self-care (01) ==
LOC: ED 10:22
DX: R44.1 Visual hallucinations (principal); Z59.0 Homelessness
CPT/HCPCS: 36415; 80053; 81003; 83690; 84443; 85025; 99283; G0426; 80306; 80307; 80320; 80329; 81001; 87086

== ENCOUNTER 2020-06-16 07:31 | Outpatient (CLI) | payer MEDICARE, BC ==
--- NOTE | 2020-06-16 10:11 | MRI Report ---
PROCEDURE: Lumbar Spine W/O INDICATIONS: LUMBAR RADICULOPATHY TECHNIQUE: Noncontrast sagittal T1 spin echo and T2 fast echo, sagittal STIR, axial T1 and T2 fast spin echo thr ough the lumbar spine. In cases with scoliosis, additional coronal T2 fast spin echo may be performe d. COMPARISON: Correlation is made with the accompanying cervical spine MRI 06/16/2020. FINDINGS: Image quality: Diagnostic, with note made of motion artifact. Alignment and Curvature: There is minimal retrolisthesis seen at L1-L2, L2-L3, L3-L4, and L4-L5. Bone Marrow: Marrow is of normal overall signal. No acute vertebral body compression fractures. Spinal Cord: Conus medullaris terminates at the L1 level. Visualized cord demonstrates normal signa l and size. Paraspinous Soft Tissues: No paravertebral masses. T12-L1: The disc height is well-preserved. There is loss of disc signal seen. Mild disc bulge is s een, which is eccentric to the right. No significant neural foraminal or central canal narrowing can be seen. L1-L2: The disc height is well-preserved. There is loss of disc signal seen. Mild disc bulge is s een. Mild facet hypertrophy is seen. There is minimal bilateral neuroforaminal narrowing seen. Mi nimal central canal narrowing is seen. L2-L3: The disc height is well-preserved. There is loss of disc signal seen. Mild disc bulge is s een. Mild facet hypertrophy is seen. No significant neural foraminal or central canal narrowing c an be seen. L3-L4: The disc height is well-preserved. There is loss of disc signal seen. Moderate disc bulge i s seen at this level. Mild to moderate facet hypertrophy is seen at this level. There is moderate t o severe bilateral neuroforaminal narrowing seen, right worse than left. Compression is seen upon the exiting nerve roots. Moderate central canal narrowing is seen. L4-L5: The disc height is well-preserved. There is loss of disc signal seen. Moderate disc bulge is seen, which is eccentric to the right. There is at least moderate facet hypertrophy seen. Associated hypertrophy of the ligamentum flavum can be seen. There is moderate to severe bilateral neuroforami nal narrowing seen, right worse than left. Compression is seen upon the exiting nerve roots. Moderat e to severe central canal narrowing is seen. L5-S1: Moderate to severe loss of disc height and disc signal can be seen. Moderate to prominent di sc bulge is seen. Remote right hemilaminectomy change can be seen. Moderate facet hypertrophy is see n. There is moderate to severe bilateral neuroforaminal narrowing seen, right worse than left. Compr ession is seen upon the exiting nerve roots. The central canal is widely patent. IMPRESSION: Multiple levels of lumbar spine degenerative change are seen, which are overall most pro minent inferiorly. Reviewed by: Joaquin Parker MD on 06/16/2020 9:09 AM [facility] Approved by: Joaquin Parker MD on 06/16/2020 9:09 AM [facility] Station ID: [id number]
--- NOTE | 2020-06-16 10:27 | MRI Report ---
PROCEDURE: Cervical Spine W/O INDICATIONS: CERVICAL DJD TECHNIQUE: Noncontrast sagittal T1 spin echo and T2 fast spin echo, sagittal STIR, foraminal oblique sagittal T2 fast spin echo, and axial gradient echo or T2 fast spin echo through the cervical spine. COMPARISON: Correlation is made with prior cervical spine CT 05/20/2020. Correlation is also made wit h the completing lumbar spine MRI 06/16/2020. FINDINGS: Image quality: There is artifact associated with the metallic hardware. Motion artifact is noted. Alignment and Curvature: There is normal bony alignment. Bone Marrow: Marrow demonstrates normal overall signal. Spinal Cord: Visualized spinal cord has normal size and signal. No cerebellar tonsillar herniation. Paraspinous Soft Tissues: No paravertebral masses. Prevertebral soft tissues are normal in thicknes s. Extensive anterior hardware can be seen, C4-C7. Disc spacers are seen at C4-C5, C5-C6, and C6-C7. Th ere is associated susceptibility artifact. C2-C3: The disc height is well-preserved. There is loss of disc signal seen. Mild disc osteophyte c omplex is seen. There is moderate right-sided and mild left-sided facet hypertrophy seen. Moderate b ilateral neuroforaminal narrowing can be seen at this level. Minimal central canal narrowing is seen. C3-C4: The disc height is well-preserved. There is loss of disc signal seen. Moderate disc osteophy te complex is seen, with a central disc osteophyte protrusion. There is prominent right-sided and mil d to moderate left-sided facet hypertrophy seen. There is moderate to severe bilateral neuroforaminal narrowing seen, right worse than left. Mild to moderate central canal narrowing is seen. Associated mass effect is seen upon the ventral spinal cord. C4-C5: Moderate disc osteophyte complex is seen. Moderate facet hypertrophy is seen, right worse sofia n left. There is moderate to severe bilateral neuroforaminal narrowing seen. No central canal narrowi ng is seen. C5-C6: Moderate disc osteophyte complex is seen. Mild to moderate facet hypertrophy is seen at this level. There is moderate right-sided and moderate to severe left-sided neuroforaminal narrowing seen. Mild to moderate central canal narrowing is seen. Associated mass effect is seen upon the ventral s leonel cord. C6-C7: Moderate disc osteophyte complex is seen. Moderate facet hypertrophy is seen. There is mode rate to severe bilateral neuroforaminal narrowing seen at this level. Mild central canal narrowing i s seen. C7-T1: Mild loss of disc height and disc signal are seen. Mild disc osteophyte complex is seen. Th ere is moderate right-sided and mild left-sided facet hypertrophy seen. Mild to moderate bilateral ne uroforaminal narrowing can be seen. Mild central canal narrowing is seen. IMPRESSION: Extensive anterior fixation hardware is seen, which is better demonstrated on the recent prior CT exa mination. Multiple levels of cervical spine degenerative change are seen, including moderate to severe bilatera l neuroforaminal narrowing at C3-C4, C4-C5, and C6-C7. Moderate to severe left-sided neuroforaminal n arrowing is also seen at C5-C6. Reviewed by: Joaquin Parker MD on 06/16/2020 9:25 AM [facility] Approved by: Joaquin Parker MD on 06/16/2020 9:25 AM [facility] Station ID: [id number]
== END 2020-06-16 07:32 | disposition home or self-care (01) ==
LOC: DI 07:31
PROVIDERS: ATTEND Nurse Practitioner
DX: M47.816 Spondylosis without myelopathy or radiculopathy, lumbar region (principal); M48.061 Spinal stenosis, lumbar region without neurogenic claudication; M51.37 Other intervertebral disc degeneration, lumbosacral region; M48.07 Spinal stenosis, lumbosacral region; M47.817 Spondylosis without myelopathy or radiculopathy, lumbosacral region

== ENCOUNTER 2020-09-21 08:00 | Outpatient (CLI) | payer MEDICARE, BC ==
[2020-09-21 18:02] LABS: BASOPHILS % (AUTO) 0.5 %; EOSINOPHILS # (AUTO) 0.1 10^3/uL (0.0-0.7); EOSINOPHILS % (AUTO) 1.6 %; HCT - HEMATOCRIT 44.7 % (42.0-52.0); HGB - HEMOGLOBIN 14.4 g/dL (14.0-18.0); MEAN CORPUSCULAR HEMOGLOBIN 31.1 pg (27.0-31.0); MEAN CORPUSCULAR HGB CONC 32.2 g/dL (32.0-36.0); MEAN CORPUSCULAR VOLUME 96.5 fL (80.0-94.0); MEAN PLATELET VOLUME 10.4 fL (7.4-11.4); MONOCYTES # (AUTO) 0.5 10^3/uL (0.0-1.0); MONOCYTES % (AUTO) 6.5 %; NEUTROPHILS # (AUTO) 5.7 10^3/uL (1.5-6.6); NEUTROPHILS % (AUTO) 77.1 %; PLT - PLATELET COUNT 223 10^3/uL (130-450); RED BLOOD COUNT 4.63 10^6/uL (4.70-6.10); RED CELL DISTRIBUTION WIDTH 13.5 % (12.0-15.0); WHITE BLOOD COUNT 7.4 x10^3/uL (4.8-10.8)
[2020-09-21 18:23] LABS: ALBUMIN 4.3 g/dL (3.2-5.5); ALBUMIN/GLOBULIN RATIO 1.7 (1.0-2.2); ALKALINE PHOSPHATASE 74 IU/L (42-121); ALT ALANINE AMINOTRANSFERASE 30 IU/L (10-60); AST ASPARTATE AMINOTRANSFERASE 27 IU/L (10-42); BILIRUBIN,TOTAL 0.9 mg/dL (0.2-1.0); BUN - BLOOD UREA NITROGEN 12 mg/dL (6-20); CALCIUM 9.3 mg/dL (8.5-10.3); CARBON DIOXIDE - CO2 27 mmol/L (21-32); CHLORIDE 104 mmol/L (101-111); CHOL/HDL RATIO 2.2 (<5.0); CHOLESTEROL 97 mg/dL; CREATININE 0.9 mg/dL (0.6-1.2); GFR - MDRD 82 (>89); GLUCOSE 90 mg/dL (70-100); HDL CHOLESTEROL 45 mg/dL; LDL CHOLESTEROL,CALCULATED 35 mg/dL; LDL/HDL RATIO 0.8 (<3.6); SODIUM 140 mmol/L (135-145); TOTAL PROTEIN 6.9 g/dL (6.7-8.2); TRIGLYCERIDES 83 mg/dL; VLDL CHOLESTEROL 17 mg/dL
[2020-09-21 18:30] LABS: THYROID STIMULATING HORMONE 0.75 uIU/mL (0.34-5.60)
[2020-09-21 18:42] LABS: CRP - C-REACTIVE PROTEIN < 1.0 mg/dL (0-1.0)
[2020-09-21 20:10] LABS: ESTIMATED AVERAGE GLUCOSE 114 mg/dL (70-100); HEMOGLOBIN A1c% 5.6 % (4.27-6.07)
== END 2020-09-21 23:59 | disposition home or self-care (01) ==
LOC: LAB.WCP 08:00
PROVIDERS: ATTEND Family Medicine
DX: E78.5 Hyperlipidemia, unspecified (principal); G62.9 Polyneuropathy, unspecified; Z79.899 Other long term (current) drug therapy; G31.84 Mild cognitive impairment of uncertain or unknown etiology
CPT/HCPCS: 36415; 80053; 80061; 82607; 83036; 83721; 84443; 85025; 85651; 86140; 86592

== ENCOUNTER 2020-11-11 08:49 | Outpatient (CLI) | payer MEDICARE, BC ==
--- NOTE | 2020-11-11 10:26 | XRAY Report ---
PROCEDURE: Cervical Spine w/Flex/Ext INDICATIONS: CHRONIC NECK PAIN, NECK FUSION YEARS AGO TECHNIQUE: 7 views of the cervical spine were acquired. COMPARISON: CT cervical spine, 05/20/2020, MR cervical spine 06/16/2020. FINDINGS: Bones: No fractures or dislocations to the C7 level. The C7-T1 level is not well visualized. Postsur gical changes are demonstrated status post ACDF at C4-C7. Surgical hardware appears intact. No associ ated suspicious lucencies. Mild to moderate degenerative disc disease is present at C3-C4 with mild e nd plate sclerosis. Mild disc degeneration at C2-C3. There is multilevel facet arthropathy including moderate degeneration within the upper cervical spine. No suspicious bony lesions. There is minimal retrolisthesis at C3-C4 which resolves on flexion. There is no definite change on ex tension. On oblique views, there is moderate bony neuroforaminal narrowing at C3-C4 on the right as well as mi ld right neuroforaminal narrowing at C6-C7 and C2-C3. On the left, there is mild bony neuroforaminal narrowing at C4-C5, C5-C6, and C6-C7. Soft tissues: Prevertebral soft tissues are normal in thickness. IMPRESSION: 1. Postsurgical changes redemonstrated status post ACDF at C4-C7 without definite evidence of hardwar e failure. 2. Minimal retrolisthesis at C3-C4 which resolves on flexion. No definite change on extension. The C7 -T1 level is not well visualized on the current study. 3. Multilevel degenerative disc disease and facet arthropathy including mild to moderate degeneration at the C3-C4 and moderate facet arthropathy in the upper cervical spine. 4. Bilateral bony neuroforaminal narrowing as described including moderate narrowing on the right at C3-C4. Reviewed by: Carlos Diaz MD on 11/11/2020 10:25 AM PDT Approved by: Carlos Diaz MD on 11/11/2020 10:25 AM PDT Station ID: [id number]
--- NOTE | 2020-11-11 14:03 | XRAY Report ---
PROCEDURE: Lumbar Spine 2 View INDICATIONS: NECK PAIN,BACK PAIN LUMBAR W/RADICULOPATHY TECHNIQUE: 2 views of the lumbar spine were acquired. COMPARISON: MRI LS-spine 06/16/2020. FINDINGS: Bones: 5 [id number] vertebrae are present. There is normal bony alignment. No vertebral body compression fractures. No suspicious bony lesions. Soft tissues: Overlying bowel gas pattern is normal. No suspicious soft tissue calcifications. IMPRESSION: Degenerative disc disease is moderately severe along the thoracolumbar junction and lumb osacral spine. This is comprised of disc height reduction and endplate osteophyte formation at all le vels of the LS-spine. Facet osteoarthritis becomes progressively more prominent from L3 through S1 an d most pronounced at L4-5 and especially L5-S1. Significant spinal and foraminal stenosis would be ex pected at the lumbosacral junction and immediately above. Reviewed by: Idris Marie MD on 11/11/2020 2:02 PM PDT Approved by: Idris Marie MD on 11/11/2020 2:02 PM PDT Station ID: [id number]
== END 2020-11-11 08:50 | disposition home or self-care (01) ==
LOC: DI 08:49
PROVIDERS: ATTEND Family Medicine
DX: M50.31 Other cervical disc degeneration, high cervical region (principal); M48.02 Spinal stenosis, cervical region; M43.02 Spondylolysis, cervical region; Z98.1 Arthrodesis status; M51.36 Other intervertebral disc degeneration, lumbar region; M51.37 Other intervertebral disc degeneration, lumbosacral region; M47.817 Spondylosis without myelopathy or radiculopathy, lumbosacral region

== ENCOUNTER 2021-01-15 13:47 | Emergency (ER) | payer MEDICARE, BC ==
--- NOTE | 2021-01-15 15:06 | XRAY Report ---
PROCEDURE: Femur 2V LT INDICATIONS: superior lateral contusion TECHNIQUE: 4 views of the femur were acquired. COMPARISON: None. FINDINGS: Bones: Left knee medial compartment hemiarthroplasty. No periprosthetic lucencies to suggest loosenin g or infection. No fractures or dislocations. Tricompartmental osteophytosis at the knee. No suspici ous bony lesions. Moderate degenerative change at the left hip. Soft tissues: No suspicious soft tissue calcifications or masses. Vascular calcifications. Suprapat ellar knee joint effusion. IMPRESSION: 1. No fracture or dislocation. 2. Moderate left hip DJD. 3. 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 Medial compartment left knee hemiarthroplasty. Reviewed by: Kerwin Colin MD on 01/15/2021 2:05 PM [facility] Approved by: Kerwin Colin MD on 01/15/2021 2:05 PM [facility] Station ID: [id number]
--- NOTE | 2021-01-15 15:16 | ED Physician Documentation ---
PD HPI LOWER EXT INJURY - Stated complaint Stated Complaint: LT LEG PX - Chief complaint Chief Complaint: Trauma Ext - History obtained from History obtained from: Patient - History of Present Illness PD HPI LOW EXT INJURY LOCATION: Left, Upper leg, Knee Type of injury: Blunt / blow Where injury occurred: Work Timing - duration: Days (2) Timing - details: Abrupt onset, Still present Improved by: Rest, Immobilization Worsened by: Moving, Palpating Associated symptoms: Swelling, Discolored. No: Weakness, Numbness Contributing factors: Anticoagulated (with plavix) Similar symptoms before: Has not had sx before Recently seen: Not recently seen - Additional information Additional information: 75-year-old male was attempting to load a concrete shoot onto a trailer to throw away when he lifted up this 150 pound 14 foot long shoot he missed stepped and dropped this on his anterior lateral left thigh. He has a significant amount of pain to the left left thigh and a significant swelling and ecchymosis. This occurred 2 days ago and he is here now for evaluation and treatment. Review of Systems Constitutional: denies: Fever Ears: denies: Ear pain Nose: denies: Congestion Throat: denies: Sore throat GI: denies: Vomiting PD PAST MEDICAL HISTORY - Past Medical History Past Medical History: Yes Cardiovascular: High cholesterol, Coronary artery disease Respiratory: Sleep apnea Neuro: Peripheral neuropathy, Other Endocrine/Autoimmune: None GI: GERD, Hiatal hernia : Benign prostate hypertrophy HEENT: Other Psych: Other Musculoskeletal: Osteoarthritis Derm: None - Past Surgical History Past Surgical History: Yes Ortho: Knee replacement, Spine surgery, Other Cardiovascular: Coronary stent - Present Medications Home Medications: Ambulatory Orders Medication Instructions Recorded Confirmed risperiDONE [Risperdal] 1 mg PO QPM 7 Days #14 tablet 05/27/20 01/15/21 Acyclovir 400 mg PO DAILY 01/15/21 01/15/21 Rosuvastatin Calcium [Crestor] 5 mg PO DAILY 01/15/21 01/15/21 - Allergies Allergies/Adverse Reactions: Allergies Allergy/AdvReac Type Severity Reaction Status Date / Time No Known Drug Allergies Allergy Verified 05/27/20 10:33 - Social History Does the pt smoke?: No Smoking Status: Never smoker Does the pt drink ETOH?: Yes Does the pt have substance abuse?: No - Immunizations Immunizations are current?: Yes PD ED PE NORMAL - Vitals Vital signs reviewed: Yes (tachy) - General General: Alert and oriented X 3, No acute distress, Well developed/nourished, Other (good color to the face and ext. ) - HEENT HEENT: Atraumatic, PERRL, EOMI - Neck Neck: Supple, no meningeal sign, No bony TTP - Respiratory Respiratory: No respiratory distress - Derm Derm: Normal color, Warm and dry, No rash - Extremities Extremities: Other (swelling to the left anterolateral thigh that extends medially and with discoloration that extends to below the knee. ) - Neuro Neuro: Alert and oriented X 3, rolling machine tender 2-12 intact, No motor deficit, No sensory deficit, Normal speech Eye Opening: Spontaneous Motor: Obeys Commands Verbal: Oriented GCS Score: 15 - Psych Psych: Normal mood, Normal affect Results - Vitals Vitals: Vital Signs - 24 hr 01/15/21 01/15/21 13:52 16:18 Temperature 36.9 C 37.7 C Heart Rate 113 H 103 H Respiratory 16 18 Rate Blood Pressure 127/64 125/65 O2 Saturation 97 96 Oxygen O2 Source Room air - Rads (name of study) femur Radiology: Prelim report reviewed (Impression: 1. No fracture or dislocation. Moderate left hip DJD. 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 Medial compartment left knee hemiarthroplasty.), EMP read indepedently, See rad report PD MEDICAL DECISION MAKING - ED course Complexity details: reviewed results, re-evaluated patient, considered differential, d/w patient ED course: 75-year-old male with a contusion to the left thigh has significant swelling consistent with a significant amount of blood loss into the soft tissues. There is no damage done to the bones associated with this and the patient is able to ambulate with crutches. Departure - Departure Disposition: 01 Home, Self Care Clinical Impression: Hematoma and contusion Injury of hip and thigh Qualifiers: Encounter type: initial encounter Laterality: left Qualified Code(s): S79.912A - Unspecified injury of left hip, initial encounter Condition: Stable Instructions: ED Contusion Lower Ext, ED Hematoma Follow-Up: Bebe Soler DO [Primary Care Provider] - Discharge Date/Time: 01/15/21 16:22
[2021-01-15 16:20] VITALS: BP 125/65
== END 2021-01-15 16:22 | disposition home or self-care (01) ==
LOC: ED 13:47
DX: S70.12XA Contusion of left thigh, initial encounter (principal); S79.912A Unspecified injury of left hip, initial encounter; W20.8XXA Other cause of strike by thrown, projected or falling object, initial encounter; Y93.89 Activity, other specified
CPT/HCPCS: 99282; 99283

== ENCOUNTER 2021-01-22 17:21 | Emergency (ER) | payer MEDICARE, BC ==
--- NOTE | 2021-01-22 19:31 | ED Physician Documentation ---
PD HPI LOWER EXT INJURY - Stated complaint Stated Complaint: LT LEG PX,SWOLLEN,STIFF - Chief complaint Chief Complaint: Ext Problem - History obtained from History obtained from: Patient - Additional information Additional information: 75-year-old gentleman who 9 days ago had a large object dropped on his left hip at home now has increased swelling of the left leg and warmth and was referred in to rule out DVT. No fevers or chills. Review of Systems Constitutional: denies: Fever, Chills Cardiac: reports: Reviewed and negative Respiratory: reports: Reviewed and negative PD PAST MEDICAL HISTORY - Past Medical History Cardiovascular: High cholesterol, Coronary artery disease Respiratory: Sleep apnea Neuro: Peripheral neuropathy, Other Endocrine/Autoimmune: None GI: GERD, Hiatal hernia : Benign prostate hypertrophy HEENT: Other Psych: Other Musculoskeletal: Osteoarthritis Derm: None - Past Surgical History Past Surgical History: Yes Ortho: Knee replacement, Spine surgery, Other Cardiovascular: Coronary stent - Present Medications Home Medications: Ambulatory Orders Medication Instructions Recorded Confirmed risperiDONE [Risperdal] 1 mg PO QPM 7 Days #14 tablet 05/27/20 01/15/21 Acyclovir 400 mg PO DAILY 01/15/21 01/15/21 Rosuvastatin Calcium [Crestor] 5 mg PO DAILY 01/15/21 01/15/21 cephALEXin [Keflex] 500 mg PO Q6H #28 cap 01/22/21 - Allergies Allergies/Adverse Reactions: Allergies Allergy/AdvReac Type Severity Reaction Status Date / Time No Known Drug Allergies Allergy Verified 01/22/21 17:42 - Social History Does the pt smoke?: No Smoking Status: Never smoker Does the pt drink ETOH?: Yes Does the pt have substance abuse?: No - Immunizations Immunizations are current?: Yes PD ED PE NORMAL - Vitals Vital signs reviewed: Yes - General General: Alert and oriented X 3, No acute distress - Extremities Extremities: Other (There is edema and bruising of the left lower extremity from mid thigh down especially over the knee with significant warmth especially over the anterior left evangelista.) - Neuro Neuro: Alert and oriented X 3, Normal speech - Psych Psych: Normal mood, Normal affect Results - Vitals Vitals: Vital Signs - 24 hr 01/22/21 17:43 Temperature 36.5 C Heart Rate 87 Respiratory 16 Rate Blood Pressure 124/71 O2 Saturation 96 Oxygen O2 Source Room air Departure - Departure Disposition: 01 Home, Self Care Clinical Impression: Cellulitis Qualifiers: Site of cellulitis: extremity Site of cellulitis of extremity: lower extremity Laterality: left Qualified Code(s): L03.116 - Cellulitis of left lower limb Pain of lower extremity Qualifiers: Laterality: left Qualified Code(s): M79.605 - Pain in left leg Condition: Good Record reviewed to determine appropriate education?: Yes Instructions: Cellulitis Dc Prescriptions: cephALEXin [Keflex] 500 mg PO Q6H #28 cap Comments: Recheck with your physician in 3 days. Elevate the leg is much as possible. Return for new or worsening symptoms.
[2021-01-22] MEDS ORDERED: cephALEXin 250 MG CAPSULE PO STA (19:49)
--- NOTE | 2021-01-22 19:49 | Ultrasound Report ---
PROCEDURE: Duplex Ext Veins Left INDICATIONS: LLE pain TECHNIQUE: Real-time imaging, as well as color and pulse Doppler interrogation, were performed of the lower extr emity deep veins from the inguinal ligament to the popliteal fossa. COMPARISON: None. FINDINGS: The deep veins are normally compressible, and free of intraluminal thrombus. Color and pu lse Doppler demonstrate normal phasic intraluminal flow. There is normal augmentation response to di stal compression maneuver. IMPRESSION: No DVT in the left lower extremity. Reviewed by: Torin Underwood on 01/22/2021 7:47 PM PDT Approved by: Torin Underwood on 01/22/2021 7:47 PM PDT Station ID: [id number]
[2021-01-22 20:22] VITALS: BP 131/67
== END 2021-01-22 20:25 | disposition home or self-care (01) ==
LOC: ED 17:21
DX: L03.116 Cellulitis of left lower limb (principal)
CPT/HCPCS: 93971; 99283; 99284; A9270

== ENCOUNTER 2021-01-25 10:53 | Outpatient (CLI) | payer MEDICARE, BC ==
[2021-01-25 18:31] LABS: BASOPHILS % (AUTO) 0.5 %; EOSINOPHILS # (AUTO) 0.1 10^3/uL (0.0-0.7); EOSINOPHILS % (AUTO) 1.3 %; HCT - HEMATOCRIT 37.4 % (42.0-52.0); HGB - HEMOGLOBIN 12.1 g/dL (14.0-18.0); LYMPHOCYTES # (AUTO) 0.7 10^3/uL (1.5-3.5); LYMPHOCYTES % (AUTO) 8.7 %; MEAN CORPUSCULAR HEMOGLOBIN 32.3 pg (27.0-31.0); MEAN CORPUSCULAR HGB CONC 32.4 g/dL (32.0-36.0); MEAN CORPUSCULAR VOLUME 99.7 fL (80.0-94.0); MEAN PLATELET VOLUME 9.5 fL (7.4-11.4); MONOCYTES # (AUTO) 0.5 10^3/uL (0.0-1.0); NEUTROPHILS # (AUTO) 6.3 10^3/uL (1.5-6.6); NEUTROPHILS % (AUTO) 83.1 %; PLT - PLATELET COUNT 332 10^3/uL (130-450); RED BLOOD COUNT 3.75 10^6/uL (4.70-6.10); RED CELL DISTRIBUTION WIDTH 14.7 % (12.0-15.0); WHITE BLOOD COUNT 7.6 x10^3/uL (4.8-10.8)
[2021-01-25 18:49] LABS: ALBUMIN 3.9 g/dL (3.2-5.5); ALBUMIN/GLOBULIN RATIO 1.4 (1.0-2.2); BILIRUBIN,TOTAL 0.9 mg/dL (0.2-1.0); CALCIUM 9.1 mg/dL (8.5-10.3); CREATININE 0.8 mg/dL (0.6-1.2); TOTAL PROTEIN 6.7 g/dL (6.7-8.2)
== END 2021-01-25 23:59 | disposition home or self-care (01) ==
LOC: LAB.WCP 10:53
PROVIDERS: ATTEND Family Medicine
DX: M25.469 Effusion, unspecified knee (principal); L03.116 Cellulitis of left lower limb
CPT/HCPCS: 36415; 80053; 85025; 86140; 87040

== ENCOUNTER 2021-02-01 08:30 | Outpatient (CLI) | payer MEDICARE, BC ==
--- NOTE | 2021-02-01 10:10 | XRAY Report ---
PROCEDURE: Knee 4 View LT INDICATIONS: MODERATE EFFUSION IN L KNEE TECHNIQUE: 4 views of the left knee(s) were acquired. COMPARISON: None. FINDINGS: Bones: No acute fractures or dislocations. No suspicious bony lesions. Status post left knee hemiar throplasty of the medial femorotibial compartment. No evidence for hardware loosening or failure. Mod erate degenerative changes of the left patellofemoral and lateral femorotibial compartments. There ar e prominent marginal osteophytes. Moderate degenerative changes of the right medial and lateral femor otibial compartments with mild joint space narrowing. Soft tissues: Small left suprapatellar joint effusion. No suspicious soft tissue calcifications. IMPRESSION: 1. Status post left knee arthroplasty of the medial femorotibial compartment without evidence for soham dware complication. 2. Moderate left lateral and patellofemoral osteoarthrosis. Small suprapatellar joint effusion. 3. Moderate right medial and lateral femorotibial osteoarthrosis. Reviewed by: Rito Ibarra MD on 02/01/2021 10:09 AM PDT Approved by: Rito Ibarra MD on 02/01/2021 10:09 AM PDT Station ID: [id number]
== END 2021-02-01 23:59 | disposition home or self-care (01) ==
LOC: DI.N 08:30
PROVIDERS: ATTEND Orthopaedic Surgery
DX: M25.462 Effusion, left knee (principal); M17.12 Unilateral primary osteoarthritis, left knee; Z96.652 Presence of left artificial knee joint

== ENCOUNTER 2021-03-04 17:36 | Emergency (ER) | payer MEDICARE, BC ==
--- NOTE | 2021-03-04 19:14 | ED Physician Documentation ---
PD HPI ABD PAIN - Stated complaint Stated Complaint: ABD PX - Chief complaint Chief Complaint: Abd Pain - History obtained from History obtained from: Patient - History of Present Illness Timing - onset: How many hours ago (7), Today Timing - duration: Hours (abrupt onset left abd/flank pain about noon today, soon after eating. Not improved with movement/rest nor OTC Motrin.) Timing - details: Abrupt onset, Still present, Constant Quality: Cramping, Aching, Pain Location: LLQ Radiation: Left flank Improved by: No: Eating, Position Worsened by: No: Eating, Moving, Position, Palpation Associated symptoms: Nausea. No: Fever, Vomiting, Dysuria Similar symptoms before: Has not had sx before Review of Systems Constitutional: denies: Fever, Chills Nose: denies: Rhinorrhea / runny nose, Congestion Throat: denies: Sore throat Respiratory: denies: Cough GI: reports: Abdominal Pain, Nausea. denies: Vomiting, Constipation, Diarrhea : denies: Dysuria, Frequency, Discharge Skin: denies: Rash, Lesions PD PAST MEDICAL HISTORY - Past Medical History Cardiovascular: High cholesterol, Coronary artery disease Respiratory: Sleep apnea Neuro: Peripheral neuropathy, Other Endocrine/Autoimmune: None GI: GERD, Hiatal hernia : Benign prostate hypertrophy HEENT: Other Psych: Other Musculoskeletal: Osteoarthritis Derm: None - Past Surgical History Past Surgical History: Yes Ortho: Knee replacement, Spine surgery, Other Cardiovascular: Coronary stent - Present Medications Home Medications: Ambulatory Orders Medication Instructions Recorded Confirmed risperiDONE [Risperdal] 1 mg PO QPM 7 Days #14 tablet 05/27/20 01/22/21 Acyclovir 400 mg PO DAILY 01/15/21 01/22/21 Rosuvastatin Calcium [Crestor] 5 mg PO DAILY 01/15/21 01/22/21 Celecoxib [Celebrex] 200 mg PO DAILY 01/22/21 01/22/21 Pantoprazole [Protonix] 40 mg PO DAILY 01/22/21 01/22/21 cephALEXin [Keflex] 500 mg PO Q6H #28 cap 01/22/21 HYDROcod/ACETAM 5/325 [[place] 5/325] 1 ea PO Q6H PRN #18 tablet 03/04/21 Tamsulosin [Flomax] 0.4 mg PO DAILY #5 cap 03/04/21 dexAMETHasone [Decadron] 4 mg PO DAILY #5 tablet 03/04/21 - Allergies Allergies/Adverse Reactions: Allergies Allergy/AdvReac Type Severity Reaction Status Date / Time No Known Drug Allergies Allergy Verified 03/04/21 17:52 - Social History Does the pt smoke?: No Smoking Status: Never smoker Does the pt drink ETOH?: Yes Does the pt have substance abuse?: No - Immunizations Immunizations are current?: Yes PD ED PE NORMAL - Vitals Vital signs reviewed: Yes - General General: Alert and oriented X 3, Well developed/nourished, Other (appears in pain) - Neck Neck: Supple, no meningeal sign, No adenopathy - Cardiac Cardiac: RRR, No murmur - Respiratory Respiratory: Clear bilaterally - Abdomen Abdomen: Normal bowel sounds, Soft, Non distended, No organomegaly, Other (mildly tender without guarding nor percussion tender left mid abdomen.) - Male Male : Deferred - Rectal Rectal: Deferred - Back Back: Other (some left CVA tender. No redness, rash nor sores. ) - Derm Derm: Normal color, Warm and dry Results - Vitals Vitals: Vital Signs - 24 hr 03/04/21 03/04/21 17:49 22:54 Temperature 36.8 C Heart Rate 87 72 Respiratory 22 16 Rate Blood Pressure 153/83 H 138/76 H O2 Saturation 96 98 Oxygen O2 Source Room air - Labs Labs: Laboratory Tests 03/04/21 03/04/21 03/04/21 19:15 19:30 19:30 WBC 13.9 H RBC 4.60 L Hgb 14.5 Hct 44.2 MCV 96.1 H MCH 31.5 H MCHC 32.8 RDW 13.2 Plt Count 218 MPV 9.4 Neut # (Auto) 12.3 H Lymph # (Auto) 0.[address] [place] # (Auto) 0.7 Eos # (Auto) 0.1 Baso # (Auto) 0.0 Absolute Nucleated RBC 0.00 Nucleated RBC % 0.0 Sodium 139 Potassium 3.7 Chloride 101 Carbon Dioxide 26 Anion Gap 12.0 BUN 16 Creatinine 1.2 Estimated GFR (MDRD) 59 L Glucose 115 H Calcium 9.4 Total Bilirubin 0.7 AST 25 ALT 25 Alkaline Phosphatase 95 Total Protein 7.3 Albumin 4.6 Globulin 2.7 Albumin/Globulin Ratio 1.7 Lipase 30 Urine Color YELLOW Urine Clarity CLEAR Urine pH 5.5 Ur Specific [place] >=1.030 H Urine Protein NEGATIVE Urine Glucose (UA) NEGATIVE Urine Ketones NEGATIVE Urine Occult Blood LARGE H Urine Nitrite NEGATIVE Urine Bilirubin NEGATIVE Urine Urobilinogen 0.2 (NORMAL) Ur Leukocyte Esterase NEGATIVE Urine RBC TNTC H Urine WBC 0-3 Ur Squamous Epith Cells FEW Squamous Urine Bacteria Few Ur Microscopic Review INDICATED Urine Culture Comments NOT INDICATED - Rads (name of study) abd/pelvic CT Radiology: Prelim report reviewed (normal, no acute process. ), EMP read contemporaneously (I believe there is 44 mm stone prxoimal third ureter. ), See rad report PD MEDICAL DECISION MAKING - ED course Complexity details: reviewed results (Rad report is normal but I believe I see left 4 mm proximal third ureteral stone with some hydroureter but kidney appears okay. ), re-evaluated patient (pain better wityh meds. ), considered differential, d/w patient Departure - Departure Disposition: 01 Home, Self Care Clinical Impression: Left sided abdominal pain, Ureterolithiasis Condition: Stable Record reviewed to determine appropriate education?: Yes Instructions: ED Stone Renal W Colic Follow-Up: Bebe Soler DO [Primary Care Provider] - Prescriptions: dexAMETHasone [Decadron] 4 mg PO DAILY #5 tablet Tamsulosin [Flomax] 0.4 mg PO DAILY #5 cap HYDROcod/ACETAM 5/325 [[place] 5/325] 1 ea PO Q6H PRN #18 tablet PRN Reason: Pain Comments: Stay well-hydrated. I am seeing what appears to be is 4 mm stone in the upper left ureter which would correlate with your area of pain. This is small enough to be a passable size and commonly over several days. You can strain your urine and see if it collects when passes. Sometimes it will crumble or passed through into the bladder and not come out immediately so you can always catch it. The true gauge is whether you do not have any further pain and that likely correlates with having passed. Use the dexamethasone daily as an anti-inflammatory for the next several days. Tamsulosin daily as well for the next 3 to 5 days. Add Tylenol every 4-6 hours or ibuprofen. Use the hydrocodone if needed for worse pain. Follow-up with your primary care if not resolved into next week and return if severe pain again. [facility] in [place]. Discharge Date/Time: 03/04/21 23:06
[2021-03-04 19:20] LABS: BILIRUBIN,URINE NEGATIVE (NEGATIVE); GLUCOSE, URINE (UA) NEGATIVE (NEGATIVE); KETONES,URINE (UA) NEGATIVE (NEGATIVE); LEUKOCYTE ESTERASE, URINE NEGATIVE (NEGATIVE); NITRITE,URINE NEGATIVE (NEGATIVE); OCCULT BLOOD,URINE LARGE (NEGATIVE); PH,URINE 5.5 PH (5.0-7.5); PROTEIN,URINE NEGATIVE (NEGATIVE); UROBILINOGEN,URINE 0.2 (NORMAL) E.U./dL (NORMAL)
[2021-03-04 19:22] LABS: CLARITY,URINE CLEAR (CLEAR)
[2021-03-04] MEDS ORDERED: SODIUM CHLORIDE 0.9% 1,000 ML IV STA (19:25)
[2021-03-04] MEDS ORDERED: ONDANSETRON 4 MG/2 ML VIAL IVP STA (19:25)
[2021-03-04] MEDS ORDERED: KETOROLAC 30 MG/ML VIAL IVP STA (19:25)
[2021-03-04] MEDS ORDERED: HYDROmorphone 1 MG/ML CARPUJECT IVP STA (19:25)
[2021-03-04 19:40] LABS: BACTERIA,URINE Few /HPF (None Seen); RBC,URINE TNTC /HPF (0-5); SQUAMOUS EPITHELIAL CELL,UR FEW Squamous (<= Few); WBC,URINE 0-3 /HPF (0-3)
[2021-03-04] MEDS ORDERED: IOVERSOL 320 100 ML VIAL IVP ONE ×2 (19:42→21:31)
[2021-03-04 19:44] LABS: BASOPHILS % (AUTO) 0.3 %; EOSINOPHILS # (AUTO) 0.1 10^3/uL (0.0-0.7); EOSINOPHILS % (AUTO) 0.4 %; HCT - HEMATOCRIT 44.2 % (42.0-52.0); HGB - HEMOGLOBIN 14.5 g/dL (14.0-18.0); LYMPHOCYTES # (AUTO) 0.7 10^3/uL (1.5-3.5); LYMPHOCYTES % (AUTO) 5.1 %; MEAN CORPUSCULAR HEMOGLOBIN 31.5 pg (27.0-31.0); MEAN CORPUSCULAR HGB CONC 32.8 g/dL (32.0-36.0); MEAN CORPUSCULAR VOLUME 96.1 fL (80.0-94.0); MEAN PLATELET VOLUME 9.4 fL (7.4-11.4); MONOCYTES # (AUTO) 0.7 10^3/uL (0.0-1.0); MONOCYTES % (AUTO) 5.2 %; NEUTROPHILS # (AUTO) 12.3 10^3/uL (1.5-6.6); NEUTROPHILS % (AUTO) 88.5 %; PLT - PLATELET COUNT 218 10^3/uL (130-450); RED CELL DISTRIBUTION WIDTH 13.2 % (12.0-15.0); WHITE BLOOD COUNT 13.9 x10^3/uL (4.8-10.8)
[2021-03-04 19:57] LABS: ALBUMIN 4.6 g/dL (3.2-5.5); ALBUMIN/GLOBULIN RATIO 1.7 (1.0-2.2); BILIRUBIN,TOTAL 0.7 mg/dL (0.2-1.0); CALCIUM 9.4 mg/dL (8.5-10.3); CREATININE 1.2 mg/dL (0.6-1.2); POTASSIUM 3.7 mmol/L (3.5-5.0); TOTAL PROTEIN 7.3 g/dL (6.7-8.2)
--- NOTE | 2021-03-04 22:19 | CT Report ---
PROCEDURE: Abdomen/Pelvis W INDICATIONS: left abd pain onset few hours ago CONTRAST: IV CONTRAST: Optiray 320 ml: 100 PO CONTRAST: *NO PO CONTRAST TECHNIQUE: After the administration of intravenous contrast, 5 mm thick sections acquired from the diaphragms to the symphysis. 5 mm thick coronal and sagittal reformats were acquired. For radiation dose reducti on, the following was used: automated exposure control, adjustment of mA and/or kV according to maynor ent size. COMPARISON: None. FINDINGS: Image quality: Excellent. ABDOMEN: Lung bases: Streaky opacity at the right lung base. Suspect atelectasis. Heart size is normal. Three -vessel coronary artery calcifications. Fluid in the lower esophagus. Asymmetric elevation of the rig ht hemidiaphragm. Solid organs: Liver and spleen are normal in enhancement. Spleen is at the upper limits of normal in size. Gallbladder is not significantly distended. No calcified gallstones. Biliary system is non di lated. Pancreas enhances normally. No adrenal nodules. Kidneys demonstrate normal size and enhance ment, without hydronephrosis. Nonobstructing right kidney stone measuring 0.6 cm. No solid renal mass . Peritoneum and bowel: Bowel loops demonstrate normal wall thickness and caliber. Diverticulosis. The appendix is not dilated. No free fluid or air. Nodes and vessels: No retroperitoneal or mesenteric adenopathy by size criteria. Aorta and inferior vena cava are normal in size. Miscellaneous: No ventral hernias. PELVIS: Genitourinary: Bladder wall thickness is normal. Question of tiny calcifications within the bladder. Prostatomegaly. Bilateral hydroceles. Miscellaneous: No inguinal hernia demonstrated. There is low-density thickening near the left groin, (/). Bones: No suspicious bony lesions. No vertebral body compression fractures. Heterotopic calcificati on adjacent to the left hip. IMPRESSION: 1. Diverticulosis. No diverticulitis. 2. Low-density thickening near the left groin. This could represent an enlarged lymph node, small flu id collection, or sequelae of prior hernia repair. -This could be further evaluated with targeted ultrasound. 3. Streaky opacity at the right lung base. Suspect atelectasis over pneumonia. Asymmetric elevation o f the right hemidiaphragm. 4. Small bilateral hydroceles. 5. Prostatomegaly. Reviewed by: Kerwin Colin MD on 03/04/2021 10:18 PM PDT Approved by: Kerwin Colin MD on 03/04/2021 10:18 PM PDT Station ID: [id number]
[2021-03-04] MEDS ORDERED: DEXAMETHASONE 20 MG/5 ML VIAL IVP ONE (22:26)
[2021-03-04] MEDS ORDERED: TAMSULOSIN 0.4 MG CAPSULE PO STA (22:26)
[2021-03-04] MEDS ORDERED: oxyCODONE/ACET 5/325 Prepack 4 PO STA (22:28)
[2021-03-04] MEDS ORDERED: HYDROcod/ACET 5/325 Prepack 4 PO STA (22:39)
[2021-03-04] MEDS ORDERED: DEXAMETHASONE 10 MG/ML VIAL IVP STA (22:39)
[2021-03-04 22:55] VITALS: BP 138/76
== END 2021-03-04 23:06 | disposition home or self-care (01) ==
LOC: ED 17:36
DX: N20.1 Calculus of ureter (principal)
CPT/HCPCS: 36415; 74177; 80053; 81001; 83690; 85025; 96374; 96375; 99284; 99285; A9270; J1170; Q9967; 81003; 87086

== ENCOUNTER 2022-06-27 04:03 | Outpatient (CLI) | payer MEDICARE, BC | END 2022-06-27 04:04 | disposition critical access hospital (66) | LOC: EMS 04:03 | DX: R10.31 Right lower quadrant pain (principal); R26.81 Unsteadiness on feet | CPT/HCPCS: A0425; A0429 ==

== ENCOUNTER 2022-06-27 04:26 | Emergency (ER) | payer MEDICARE, BC ==
--- NOTE | 2022-06-27 04:26 | ED Physician Documentation ---
PD HPI ABD PAIN - Stated complaint Stated Complaint: RLQ ABD PX - History obtained from History obtained from: Patient, EMS - History of Present Illness Pain level max: 9 Pain level now: 0 Quality: Pain - Additional information Additional information: HPI from patient as well as EMS. Patient BIBA for sudden onset right flank and RLQ pain, onset while at home at rest, associated with nausea, vomiting. Has h/o left kidney stones, but isn't confident this is similar pain. He fell yesterday at 1 PM, tripped and fell, no recollection of injury but he mentions this in the context of otherwise tonight's pain in context of no apparent inciting/causative event. He arrives pain-free without specific EMS intervention, but EMS notes that en route, patient had brief episode of obvious painful distress Review of Systems Constitutional: denies: Fever GI: reports: Abdominal Pain (right flank, RLQ), Nausea, Vomiting. denies: Abdominal Swelling : reports: Hematuria (patient says he notes red-tinged urine since earlier today). denies: Dysuria, Frequency PD PAST MEDICAL HISTORY - Past Medical History Past Medical History: Yes Other Past Medical History: patient says he has h/o coronary artery stents and thinks he has been diagnosed with CHF but he says he stopped all medications on his own a few years ago - Present Medications Home Medications: Ambulatory Orders Medication Instructions Recorded Confirmed Ondansetron Odt [Zofran Odt] 4 mg TL Q6H PRN #14 tablet 06/27/22 Tamsulosin [Flomax] 0.4 mg PO DAILY #14 cap 06/27/22 traMADol [Ultram] 50 - 100 mg PO Q6H PRN #20 tablet 06/27/22 - Allergies Allergies/Adverse Reactions: Allergies Allergy/AdvReac Type Severity Reaction Status Date / Time No Known Drug Allergies Allergy Verified 03/04/21 17:52 PD ED PE NORMAL - Vitals Vital signs reviewed: Yes - General General: Alert and oriented X 3, No acute distress, Well developed/nourished - HEENT HEENT: Moist mucous membranes - Cardiac Cardiac: RRR, No murmur - Respiratory Respiratory: No respiratory distress, Clear bilaterally - Abdomen Abdomen: Normal bowel sounds, Soft, Non tender, Non distended - Back Back: No CVA TTP PD ED PE EXPANDED - Extremities Extremities: Pedal edema bilateral Results - Vitals Vitals: Vital Signs - 24 hr 06/27/22 06/27/22 06/27/22 04:33 05:00 07:08 Temperature 37.3 C 36.9 C Heart Rate 85 71 83 Respiratory 19 19 Rate Blood Pressure 144/82 H 127/79 133/74 H O2 Saturation 96 91 L 99 Oxygen O2 Source Room air - Labs Labs: Laboratory Tests 06/27/22 06/27/22 06/27/22 04:37 04:37 06:16 WBC 9.8 RBC 4.77 Hgb 14.9 Hct 44.2 MCV 92.7 MCH 31.2 H MCHC 33.7 RDW 13.2 Plt Count 199 MPV 10.0 Neut # (Auto) 8.6 H Lymph # (Auto) 0.6 L [place] # (Auto) 0.5 Eos # (Auto) 0.0 Baso # (Auto) 0.0 Absolute Nucleated RBC 0.00 Nucleated RBC % 0.0 Sodium 137 Potassium 3.2 L Chloride 102 Carbon Dioxide 21 Anion Gap 14.0 H BUN 14 Creatinine 1.2 Estimated GFR (MDRD) 59 L Glucose 121 H Calcium 9.3 Total Bilirubin 1.2 H AST 18 ALT 12 Alkaline Phosphatase 65 Total Protein 6.7 Albumin 4.0 Globulin 2.7 Albumin/Globulin Ratio 1.5 Lipase 34 Urine Color DARK YELLOW Urine Clarity CLEAR Urine pH 6.0 Ur Specific [place] 1.020 Urine Protein NEGATIVE Urine Glucose (UA) NEGATIVE Urine Ketones TRACE Urine Occult Blood LARGE H Urine Nitrite NEGATIVE Urine Bilirubin NEGATIVE Urine Urobilinogen 1 (NORMAL) Ur Leukocyte Esterase NEGATIVE Urine RBC 11-25 H Urine WBC 0-3 Ur Squamous Epith Cells RARE Squamous Urine Bacteria Rare Ur Microscopic Review INDICATED Urine Culture Comments NOT INDICATED - Rads (name of study) CT A/P without contrast Radiology: Prelim report reviewed, EMP read indepedently, See rad report PD Medical Decision Making - ED course Complexity details: reviewed results, re-evaluated patient, considered differential, d/w patient ED course: No concerning findings on CBC, ER abdominal panel. UA with hematuria but no other abnormalities. CT A/P shows right ureteral calculus which I measure to 7.2mm in largest dimension, upper third of ureter, with proximal hydroureter and hydronephrosis. He had mild return of his flank pain during ED stay which responded to IV toradol. Results d/w patient, return precautions discussed. He is given a strainer and instructed to strain urine x 2 week or until he catches the calculus. He is given flomax with rx for same. We discussed options for pain control, presuming (likely) episodic right flank pain until the calculus passes or is procedurally retrieved. He does not want strong narcotic medications due to untoward side effects (specifically, oxycodone and hydrocodone have caused very distressing hallucinations). I expressed concern that OTC medications might not offer adequate pain control and eventually we settled on tramadol. I provided rx for tramadol, tamsulosin (first dose in ED), and ondansetron. Return precautions discussed, advised to seek follow up with urology, which will likely require referral from either PMD or else directly through his insurance provider if possible. I reviewed with him that he also has several bladder stones; an unusual finding which might also benefit from seeking urology follow up. Departure - Departure Disposition: 01 Home, Self Care Clinical Impression: Renal colic Condition: Good Instructions: ED Stone Renal W Colic Prescriptions: Tamsulosin [Flomax] 0.4 mg PO DAILY #14 cap traMADol [Ultram] 50 - 100 mg PO Q6H PRN #20 tablet PRN Reason: Pain Ondansetron Odt [Zofran Odt] 4 mg TL Q6H PRN #14 tablet PRN Reason: Nausea / Vomiting Comments: The CT scan performed this morning shows that you have a kidney stone on the right side; this is certainly the cause of your right flank pain. The stone is rather large (6.6 mm); this will make it difficult to pass without needing a procedure, but, as we discussed, it certainly is still a possibility. You are given a dose of tamsulosin (Flomax) in the emergency department and a prescription is being electronically submitted to the [facility] in [place] for this medication. Tamsulosin can increase the chances that you will pass the kidney stone, as well as decrease the amount of time it will take to pass the stone. I am also submitting prescriptions for ondansetron (antinausea medication) and tramadol (narcotic/opiate pain medication) to the [facility] in [place]. You have been provided a strainer for which you should strain your urine for at least the next 2 weeks, but you can stop using the strainer if you pass the stone (this would be evident by seeing the stone in the strainer). If you do find that the stone passes into the strainer, you should bring the stone to your primary care provider, as some providers will send the stone to a lab for analysis. As we discussed, the CT scan also shows several stones that are stuck in your bladder. This is a somewhat unusual finding, as most stones that pass into the bladder will pass out of the body when you next urinate. The finding of multiple stones in your bladder also would be a good reason to follow-up with a urologist. Should the kidney stone not pass on its own, a urologist would be the specialist that would perform a procedure to remove the stone. As we discussed, you would need a referral to see a urologist, and the best way to go about this is to contact your primary care provider's office and ask them about the referral process. I am prescribing a short course of narcotic pain medication for you. These are potentially dangerous and addictive medications that should be used carefully. These medications may constipate you. Take an [id number] stool softener (docusate) twice daily with plenty of water while taking these medications. If you go 24 hours without a bowel movement, take ofnh-tyy-qchotiz miralax, per package instructions. Do not drink or drive while taking these medications. If you received narcotic or sedating medications while in the emergency department, do not drive for 24 hours. Store this medication in a safe, secure place and out of reach of children. It is a violation of federal law to give or sell this medication to another person or to use in a manner other than prescribed. The ED will not refill narcotic prescriptions, including prescriptions lost or stolen. To dispose of unwanted medications: 1. [facility] at [address] in [place] has a medication drop box. They accept prescription medications (in pill form) Sunday through Sunday 9:00 a.m. to 5:00 p.m. 2. [facility] accepts prescription medications (in pill form only) for disposal year round. Call for more information. 3. Contact the [facility] for the next [facility] sponsored prescription drug collection event. , [phone], or [phone]; Discharge Date/Time: 06/27/22 07:09
[2022-06-27 04:57] LABS: BASOPHILS % (AUTO) 0.3 %; EOSINOPHILS % (AUTO) 0.3 %; HCT - HEMATOCRIT 44.2 % (42.0-52.0); HGB - HEMOGLOBIN 14.9 g/dL (14.0-18.0); LYMPHOCYTES # (AUTO) 0.6 10^3/uL (1.5-3.5); LYMPHOCYTES % (AUTO) 6.1 %; MEAN CORPUSCULAR HEMOGLOBIN 31.2 pg (27.0-31.0); MEAN CORPUSCULAR HGB CONC 33.7 g/dL (32.0-36.0); MEAN CORPUSCULAR VOLUME 92.7 fL (80.0-94.0); MONOCYTES # (AUTO) 0.5 10^3/uL (0.0-1.0); MONOCYTES % (AUTO) 5.5 %; NEUTROPHILS # (AUTO) 8.6 10^3/uL (1.5-6.6); NEUTROPHILS % (AUTO) 87.3 %; PLT - PLATELET COUNT 199 10^3/uL (130-450); RED BLOOD COUNT 4.77 10^6/uL (4.70-6.10); RED CELL DISTRIBUTION WIDTH 13.2 % (12.0-15.0); WHITE BLOOD COUNT 9.8 x10^3/uL (4.8-10.8)
[2022-06-27 05:09] LABS: ALBUMIN/GLOBULIN RATIO 1.5 (1.0-2.2); BILIRUBIN,TOTAL 1.2 mg/dL (0.2-1.0); CALCIUM 9.3 mg/dL (8.5-10.3); CREATININE 1.2 mg/dL (0.6-1.2); POTASSIUM 3.2 mmol/L (3.5-5.0); TOTAL PROTEIN 6.7 g/dL (6.7-8.2)
[2022-06-27] MEDS ORDERED: KETOROLAC 30 MG/ML VIAL IVP STA (05:57)
[2022-06-27] MEDS ORDERED: KETOROLAC 30 MG/ML VIAL ONE (06:00)
[2022-06-27 06:29] LABS: BILIRUBIN,URINE NEGATIVE (NEGATIVE); GLUCOSE, URINE (UA) NEGATIVE (NEGATIVE); KETONES,URINE (UA) TRACE mg/dL (NEGATIVE); LEUKOCYTE ESTERASE, URINE NEGATIVE (NEGATIVE); NITRITE,URINE NEGATIVE (NEGATIVE); OCCULT BLOOD,URINE LARGE (NEGATIVE); PROTEIN,URINE NEGATIVE (NEGATIVE); UROBILINOGEN,URINE 1 (NORMAL) E.U./dL (NORMAL)
[2022-06-27 06:33] LABS: CLARITY,URINE CLEAR (CLEAR)
[2022-06-27 06:36] LABS: BACTERIA,URINE Rare /HPF (None Seen); SQUAMOUS EPITHELIAL CELL,UR RARE Squamous (<= Few); WBC,URINE 0-3 /HPF (0-3)
[2022-06-27] MEDS ORDERED: TAMSULOSIN 0.4 MG CAPSULE PO STA (06:46)
[2022-06-27 07:09] VITALS: BP 133/74
--- NOTE | 2022-06-27 08:40 | CT Report ---
PROCEDURE: ABDOMEN/PELVIS WO INDICATIONS: right flank pain TECHNIQUE: Noncontrast 5 mm thick sections acquired from the diaphragms to the symphysis. 5 mm coronal and sagi ttal reformats were then performed. For radiation dose reduction, the following was used: automated exposure control, adjustment of mA and/or kV according to patient size. COMPARISON: CT abdomen/pelvis with, 03/04/2021. FINDINGS: Image quality: Excellent. ABDOMEN: Lung bases: Chronic right basilar opacities are likely scars and atelectasis. Heart size is normal. Moderate coronary calcification. Small hiatal hernia. Solid organs: Liver and spleen are normal in size. Gallbladder is normal Pancreas is normal in con tours. No adrenal nodules. Kidneys are normal in size. There is a 7 mm stone in the proximal right ureter demonstrating CT dens ity 616.9 Hounsfield units. There is mild right hydronephrosis and perinephric stranding. No left inocencio al stone or hydronephrosis. There are stones within the bladder measuring up to 8 mm. Bladder wall th ickness is normal. A 3.4 mm calcification seen near the right UVJ, which was present on 03/04/2021, probably a phlebolith. Peritoneum and bowel: Unenhanced bowel loops demonstrate normal wall thickness and caliber. Diverti culosis. No acute diverticulitis. No free fluid or air. Nodes and vessels: No retroperitoneal or mesenteric adenopathy by size criteria. Aorta and inferior vena cava are normal in caliber. Miscellaneous: No ventral hernias. PELVIS: Genitourinary: Prostate is enlarged. Miscellaneous: No inguinal hernias or adenopathy. Bones: Mild T11 compression fracture. No suspicious bony lesions. No vertebral body compression fra ctures. IMPRESSION: 1. A 7 mm obstructive stone proximal right ureter causing mild right hydronephrosis. 2. Bladder stones measuring up to 8 mm. 3. Diverticulosis without diverticulitis. 4. Chronic right basilar opacities are likely scars and atelectasis. 5. Enlarged prostate. 6. Small hiatal hernia. No significant discrepancy with the preliminary interpretation. Reviewed by: Elizabet Nicole MD on 06/27/2022 8:39 AM PST Approved by: Elizabet Nicole MD on 06/27/2022 8:39 AM PST Station ID: [id number]
== END 2022-06-27 07:09 | disposition home or self-care (01) ==
LOC: EDUNIT# → ED 04:26
DX: N13.2 Hydronephrosis with renal and ureteral calculous obstruction (principal); N21.0 Calculus in bladder
CPT/HCPCS: 36415; 74176; 80053; 81001; 83690; 85025; 96374; 99284; A9270; 81003; 87086

== ENCOUNTER 2022-07-13 23:04 | Outpatient (CLI) | payer MEDICARE, BC | END 2022-07-14 23:59 | disposition EMS.NT | LOC: EMS 23:04 | DX: Z03.89 Encounter for observation for other suspected diseases and conditions ruled out (principal) ==

== ENCOUNTER 2023-02-13 07:01 | Outpatient (CLI) | payer MEDICARE, BC | END 2023-02-13 23:59 | disposition EMS.NT | LOC: EMS 07:01 | DX: Z04.1 Encounter for examination and observation following transport accident (principal) ==

== ENCOUNTER 2023-03-07 14:09 | Outpatient (CLI) | payer MEDICARE, BC | END 2023-03-07 23:59 | disposition critical access hospital (66) | LOC: EMS 14:09 | DX: Z04.6 Encounter for general psychiatric examination, requested by authority (principal); R41.0 Disorientation, unspecified; R44.3 Hallucinations, unspecified; R63.8 Other symptoms and signs concerning food and fluid intake | CPT/HCPCS: A0425; A0429 ==

== ENCOUNTER 2023-03-07 14:34 | Emergency (ER) | payer MEDICARE, BC ==
[2023-03-07 15:12] LABS: BASOPHILS % (AUTO) 0.3 %; EOSINOPHILS # (AUTO) 0.1 10^3/uL (0.0-0.7); EOSINOPHILS % (AUTO) 0.4 %; HCT - HEMATOCRIT 43.7 % (42.0-52.0); HGB - HEMOGLOBIN 15.1 g/dL (14.0-18.0); LYMPHOCYTES # (AUTO) 0.7 10^3/uL (1.5-3.5); LYMPHOCYTES % (AUTO) 6.3 %; MEAN CORPUSCULAR HEMOGLOBIN 31.8 pg (27.0-31.0); MEAN CORPUSCULAR HGB CONC 34.6 g/dL (32.0-36.0); MEAN PLATELET VOLUME 9.7 fL (7.4-11.4); MONOCYTES # (AUTO) 0.9 10^3/uL (0.0-1.0); MONOCYTES % (AUTO) 7.3 %; NEUTROPHILS # (AUTO) 10.1 10^3/uL (1.5-6.6); NEUTROPHILS % (AUTO) 85.4 %; PLT - PLATELET COUNT 251 10^3/uL (130-450); RED BLOOD COUNT 4.75 10^6/uL (4.70-6.10); RED CELL DISTRIBUTION WIDTH 13.4 % (12.0-15.0); WHITE BLOOD COUNT 11.8 x10^3/uL (4.8-10.8)
--- NOTE | 2023-03-07 15:29 | ED Physician Documentation ---
History of Present Illness - Stated complaint Stated Complaint: CONFUSION/HALLUCINATIONS - Chief complaint Chief Complaint: Neuro - History obtained from History obtained from: Patient, EMS - History of Present Illness Timing: Unknown Pain level max: 0 Pain level now: 0 - Additonal information Additional information: Patient is a 77-year-old male brought in by EMS reporting episodes of confusion. Patient states that he has had hallucinations for many years. They are not command hallucinations. He states he has fallen and struck his head 2 or 3 times in the past few days. No loss of consciousness. No nausea or vomiting. No fevers. No chills.Nothing makes it better or worse. He is not suicidal or h omicidal. He states he is supposed to be on medications but is not taking them. Patient has been seen here previously for hallucinations in 2020, was recommended to be on Risperdal at that time. He is not currently on any medications. Patient was placed on an DENY hold by police. Review of Systems Constitutional: denies: Fever, Chills Respiratory: denies: Cough GI: denies: Nausea, Vomiting, Diarrhea Skin: denies: Rash Musculoskeletal: denies: Neck pain, Back pain Neurologic: reports: Head injury (several falls). denies: Generalized weakness, Focal weakness, Numbness, Syncope, Seizure, Headache PD PAST MEDICAL HISTORY - Past Medical History Cardiovascular: High cholesterol, Coronary artery disease Respiratory: Sleep apnea Neuro: Peripheral neuropathy, Other Endocrine/Autoimmune: None GI: GERD, Hiatal hernia : Benign prostate hypertrophy HEENT: Other Psych: Other Musculoskeletal: Osteoarthritis Derm: None - Past Surgical History Past Surgical History: Yes Ortho: Knee replacement, Spine surgery, Other Cardiovascular: Coronary stent - Present Medications Home Medications: Ambulatory Orders Medication Instructions Recorded Confirmed No Known Home Medications 03/07/23 03/07/23 - Allergies Allergies/Adverse Reactions: Allergies Allergy/AdvReac Type Severity Reaction Status Date / Time No Known Drug Allergies Allergy Verified 03/07/23 14:50 - Social History Does the pt smoke?: No Smoking Status: Never smoker Does the pt drink ETOH?: Yes Does the pt have substance abuse?: No - Immunizations Immunizations are current?: Yes - POLST Patient has POLST: No PD ED PE NORMAL - Vitals Vital signs reviewed: Yes - General General: Alert and oriented X 3, No acute distress - HEENT HEENT: PERRL, Moist mucous membranes - Neck Neck: Supple, no meningeal sign - Cardiac Cardiac: RRR, Strong equal pulses - Respiratory Respiratory: No respiratory distress, Clear bilaterally - Abdomen Abdomen: Soft, Non tender, Non distended - Back Back: No spinal TTP - Derm Derm: Warm and dry - Extremities Extremities: No deformity, Other (1+ BLE edema) - Neuro Neuro: Alert and oriented X 3 - Psych Psych: Normal mood, Normal affect Results - Vitals Vitals: Vital Signs - 24 hr 03/07/23 03/07/23 14:45 18:02 Temperature 36.5 C Heart Rate 103 H 138 H Respiratory 20 20 Rate Blood Pressure 140/87 H 126/76 O2 Saturation 97 94 Oxygen O2 Source Room air - Labs Labs: Laboratory Tests 03/07/23 03/07/23 03/07/23 15:03 15:05 15:05 WBC 11.8 H RBC 4.75 Hgb 15.1 Hct 43.7 MCV 92.0 MCH 31.8 H MCHC 34.6 RDW 13.4 Plt Count 251 MPV 9.7 Neut # (Auto) 10.1 H Lymph # (Auto) 0.7 L [place] # (Auto) 0.9 Eos # (Auto) 0.1 Baso # (Auto) 0.0 Absolute Nucleated RBC 0.00 Nucleated RBC % 0.0 Sodium 138 Potassium 3.6 Chloride 102 Carbon Dioxide 23 Anion Gap 13.0 BUN 25 H Creatinine 1.0 Estimated GFR (MDRD) 72 L Glucose 95 Calcium 9.5 Magnesium 1.9 Total Bilirubin 1.7 H AST 79 H ALT 40 Alkaline Phosphatase 77 Total Creatine Kinase 1127 H* Total Protein 6.9 Albumin 4.3 Globulin 2.6 Albumin/Globulin Ratio 1.7 Lipase 21 Vitamin B12 144 L Folate 8.1 TSH 1.10 Urine Color Urine Clarity Urine pH Ur Specific [place] Urine Protein Urine Glucose (UA) Urine Ketones Urine Occult Blood Urine Nitrite Urine Bilirubin Urine Urobilinogen Ur Leukocyte Esterase Ur Microscopic Review Urine Culture Comments Salicylates < 1.5 Urine Opiates Screen Ur Oxycodone Screen Urine Methadone Screen Ur Propoxyphene Screen Acetaminophen < 0.1 Ur Barbiturates Screen Ur Tricyclics Screen Ur Phencyclidine Scrn Ur Amphetamine Screen U Methamphetamines Scrn U Benzodiazepines Scrn Urine Cocaine Screen U Cannabinoids Screen Ethyl Alcohol < 10.0 SARS-CoV-2 (PCR) NOT DETECTED 03/07/23 17:15 WBC RBC Hgb Hct MCV MCH MCHC RDW Plt Count MPV Neut # (Auto) Lymph # (Auto) [place] # (Auto) Eos # (Auto) Baso # (Auto) Absolute Nucleated RBC Nucleated RBC % Sodium Potassium Chloride Carbon Dioxide Anion Gap BUN Creatinine Estimated GFR (MDRD) Glucose Calcium Magnesium Total Bilirubin AST ALT Alkaline Phosphatase Total Creatine Kinase Total Protein Albumin Globulin Albumin/Globulin Ratio Lipase Vitamin B12 Folate TSH Urine Color YELLOW Urine Clarity CLEAR Urine pH 5.5 Ur Specific [place] 1.025 Urine Protein NEGATIVE Urine Glucose (UA) NEGATIVE Urine Ketones 40 H Urine Occult Blood NEGATIVE Urine Nitrite NEGATIVE Urine Bilirubin NEGATIVE Urine Urobilinogen 1 (NORMAL) Ur Leukocyte Esterase NEGATIVE Ur Microscopic Review NOT INDICATED Urine Culture Comments NOT INDICATED Salicylates Urine Opiates Screen NEGATIVE Ur Oxycodone Screen NEGATIVE Urine Methadone Screen NEGATIVE Ur Propoxyphene Screen NEGATIVE Acetaminophen Ur Barbiturates Screen NEGATIVE Ur Tricyclics Screen NEGATIVE Ur Phencyclidine Scrn NEGATIVE Ur Amphetamine Screen NEGATIVE U Methamphetamines Scrn NEGATIVE U Benzodiazepines Scrn NEGATIVE Urine Cocaine Screen NEGATIVE U Cannabinoids Screen NEGATIVE Ethyl Alcohol SARS-CoV-2 (PCR) PD Medical Decision Making - ED course Complexity details: reviewed results, re-evaluated patient, considered differential, d/w patient, d/w clinical science consultant ED course: Patient is medically clear for psychiatric care. [facility] was consulted and the DCR dispatched. DCRTere, saw the patient and does not feel that acute hospitalization is necessary. She states that the patient is interested in assisted living or in-home caregivers. She is recommending social work consultation in the morning for this. She states that [facility] can also follow-up the patient as an outpatient. The patient is not suicidal or homicidal. He was given a dose of Seroquel here tonight to help him sleep. Patient will be signed out to Dr. Stacy for further care. This document was made in part using voice recognition software. While efforts are made to proofread this document, sound alike and grammatical errors may occur. Departure - Departure Clinical Impression: Hallucinations, Confusion Condition: Stable Forms: PCP List
[2023-03-07 16:04] LABS: ALBUMIN 4.3 g/dL (3.2-5.5); ALBUMIN/GLOBULIN RATIO 1.7 (1.0-2.2); ALKALINE PHOSPHATASE 77 IU/L (42-121); ALT ALANINE AMINOTRANSFERASE 40 IU/L (10-60); AST ASPARTATE AMINOTRANSFERASE 79 IU/L (10-42); BILIRUBIN,TOTAL 1.7 mg/dL (0.2-1.0); BUN - BLOOD UREA NITROGEN 25 mg/dL (6-20); CALCIUM 9.5 mg/dL (8.5-10.3); CARBON DIOXIDE - CO2 23 mmol/L (21-32); CHLORIDE 102 mmol/L (101-111); ETOH - ETHANOL < 10.0 mg/dL; GFR - MDRD 72 (>89); GLUCOSE 95 mg/dL (74-104); LIPASE 21 U/L (11-82); MAGNESIUM 1.9 mg/dL (1.7-2.3); POTASSIUM 3.6 mmol/L (3.5-4.5); SODIUM 138 mmol/L (135-145); TOTAL PROTEIN 6.9 g/dL (6.4-8.9)
--- NOTE | 2023-03-07 16:11 | CT Report ---
PROCEDURE: HEAD WO INDICATIONS: fall, head injury TECHNIQUE: Noncontrast 4.5 mm thick angled axial sections acquired from the foramen magnum to the vertex. For r adiation dose reduction, the following was used: automated exposure control, adjustment of mA and/or kV according to patient size. COMPARISON: 05/20/2020 FINDINGS: Image quality: Excellent. CSF spaces: Basal cisterns are patent. No extra-axial fluid collections. Ventricles are normal in size and shape. Subcortical and periventricular hypodensities are consistent with microvascular ische darshan disease and age-related cerebral volume loss. Brain: No midline shift. No intracranial masses or hemorrhage. Wood-white matter interface is norm al. Skull and face: Calvarium and visualized facial bones are intact, without suspicious lesions. Sinuses: Visualized sinuses and mastoids are clear. IMPRESSION: 1. No acute intracranial abnormality. 2. Microvascular ischemic disease and age-related cerebral volume loss. Reviewed by: Torin Underwood on 03/07/2023 4:10 PM PDT Approved by: Torin Underwood on 03/07/2023 4:10 PM PDT Station ID: [id number]
[2023-03-07 16:19] LABS: ACETAMINOPHEN < 0.1 ug/mL; CK- CREATINE KINASE 1127 IU/L (30-223); SALICYLATE < 1.5 mg/dL
[2023-03-07] MEDS ORDERED: SODIUM CHLORIDE 0.9% 1,000 ML IV STA (16:20)
[2023-03-07 17:24] LABS: MUDS CUTOFF CONCENTRATIONS CUTOFF CONC BELOW:
[2023-03-07 17:27] LABS: GLUCOSE, URINE (UA) NEGATIVE (NEGATIVE); KETONES,URINE (UA) 40 mg/dL (NEGATIVE); LEUKOCYTE ESTERASE, URINE NEGATIVE (NEGATIVE); NITRITE,URINE NEGATIVE (NEGATIVE); OCCULT BLOOD,URINE NEGATIVE (NEGATIVE); PH,URINE 5.5 PH (5.0-7.5); PROTEIN,URINE NEGATIVE (NEGATIVE); UROBILINOGEN,URINE 1 (NORMAL) E.U./dL (NORMAL)
[2023-03-07 17:30] LABS: BILIRUBIN,URINE NEGATIVE (NEGATIVE); CLARITY,URINE CLEAR (CLEAR); ICTOTEST,URINE NEGATIVE
[2023-03-07 17:50] LABS: AMPHETAMINE SCREEN,URINE NEGATIVE (NEGATIVE); BARBITURATE SCREEN,UR NEGATIVE (NEGATIVE); BENZODIAZEPINES SCREEN, URINE NEGATIVE (NEGATIVE); COCAINE SCREEN URINE NEGATIVE (NEGATIVE); METHADONE SCREEN, URINE NEGATIVE (NEGATIVE); METHAMPHETAMINES SCREEN, URINE NEGATIVE (NEGATIVE); OPIATE SCREEN, URINE NEGATIVE (NEGATIVE); OXYCODONE SCREEN, URINE NEGATIVE (NEGATIVE); PROPOXYPHENE SCREEN, URINE NEGATIVE (NEGATIVE); THC CANNABINOID SCREEN, URINE NEGATIVE (NEGATIVE); TRICYCLIC ANTIDEPRESSANT,URINE NEGATIVE (NEGATIVE)
[2023-03-07] MEDS ORDERED: ACETAMINOPHEN 325 MG TABLET PO STA (22:06)
[2023-03-07] MEDS ORDERED: QUEtiapine 25 MG TABLET PO STA (22:07)
[2023-03-08 12:48] VITALS: O2SAT 96
[2023-03-08] MEDS ORDERED: ACYCLOVIR 200 MG CAPSULE PO SCH (13:00)
--- NOTE | 2023-03-08 15:49 | ED Physician Documentation ---
ED Addendum - Addendum Addendum: 03/08/23 15:47 DCR evaluated the patient last night. Patient does not meet criteria for involuntary hold at this time. Patient does not want to go to a assisted living facility. He does not want to go to a psychiatric hospital. As the patient does not meet criteria for involuntary hold by DCR, he will be discharged home. [facility] can help the patient at home and check on him daily per the DCR last night. The patient is not suicidal or homicidal. It had been recommended that he take Risperdal in the past. After speaking with the patient at length he states that he will try the risperdal at home. He did take a dose of Seroquel last night to help him sleep. Patient counseled regarding signs and symptoms for which I believe and urgent re-evaluation would be necessary. Patient with good understanding of and agreement to plan and is comfortable going home at this time This document was made in part using voice recognition software. While efforts are made to proofread this document, sound alike and grammatical errors may occur. Departure - Departure Disposition: 01 Home, Self Care Clinical Impression: Hallucinations, Confusion Condition: Stable Instructions: ED Psychosis Follow-Up: your,doctor in 1 week [Other] Prescriptions: Risperidone [Risperdal] 1 mg PO QPM #30 tablet Comments: We are starting you on a medication on his risperidone, this was the medication that was recommended to you by the psychiatrist in 2020. It is important you follow-up with your primary care provider for further care. Please return if you worsen. You were seen and evaluated by the DCR, if you feel you need another evaluation with them you can contact them directly at the crisis line number Crisis Line and is available to talk to someone [email or web address] is also available to chat with someone online if you prefer. There are also many resources on this website and apps for your phone to help with your mental health You can also text the word START to [phone] to chat with someome via text. Your prescription was sent to [facility] in [place]. Forms: PCP List Discharge Date/Time: 03/08/23 17:03
[2023-03-08] MEDS ORDERED: OLANZapine ODT 5 MG TABLET TL STA (15:57)
[2023-03-08 16:08] VITALS: BP 144/86
== END 2023-03-08 17:03 | disposition home or self-care (01) ==
LOC: EDUNIT# → ED 14:34
DX: R44.3 Hallucinations, unspecified (principal); R41.0 Disorientation, unspecified; E78.00 Pure hypercholesterolemia, unspecified; Z20.822 Contact with and (suspected) exposure to COVID-19
CPT/HCPCS: 36415; 70450; 80053; 80306; 80307; 81003; 82550; 82607; 82746; 83690; 83735; 84443; 85025; 87635; 99284; A9270; G0480; 80320; 80329; 81001; 87086

== ENCOUNTER 2023-06-11 13:53 | Outpatient (CLI) | payer MEDICARE, BC | END 2023-06-11 13:54 | disposition critical access hospital (66) | LOC: EMS 13:53 | DX: R10.9 Unspecified abdominal pain (principal); W01.0XXA Fall on same level from slipping, tripping and stumbling without subsequent striking against object, initial encounter; Y92.098 Other place in other non-institutional residence as the place of occurrence of the external cause | CPT/HCPCS: A0425; A0429 ==

== ENCOUNTER 2023-06-11 14:15 | Emergency (ER) | payer MEDICARE, BC ==
--- NOTE | 2023-06-11 14:44 | ED Physician Documentation ---
History of Present Illness - Stated complaint Stated Complaint: GLF - Chief complaint Chief Complaint: Trauma Ch/Bk - History obtained from History obtained from: Patient, EMS - History of Present Illness Pain level max: 5 Pain level now: 5 - Additonal information Additional information: 77-year-old male severe dementia and lives in a care facility. Had a witnessed ground-level fall today. No head strike. He hit the right side of his posterior ribs. Staff was concerned about pain at the site. Patient has no complaints. Patient does not recall what happened and was unable to give any history. Patient has no other injuries. Ambulatory after the event. Not on blood thinners. Review of Systems Unable to obtain: Dementia Constitutional: denies: Fever, Chills GI: denies: Vomiting Musculoskeletal: denies: Neck pain, Back pain PD PAST MEDICAL HISTORY - Past Medical History Past Medical History: Yes Cardiovascular: High cholesterol, Coronary artery disease Respiratory: Sleep apnea Neuro: Dementia, Peripheral neuropathy, Other Endocrine/Autoimmune: None GI: GERD, Hiatal hernia : Benign prostate hypertrophy HEENT: Other Psych: Other Musculoskeletal: Osteoarthritis Derm: None - Past Surgical History Past Surgical History: Yes Ortho: Knee replacement, Spine surgery, Other Cardiovascular: Coronary stent - Present Medications Home Medications: Ambulatory Orders Medication Instructions Recorded Confirmed Aspirin EC [Ecotrin] 81 mg PO DAILY 06/11/23 06/11/23 Lidocaine Patch 5% [Lidoderm Patch] 1 patch TOP DAILY PRN #10 patch 06/11/23 Meloxicam [Mobic] 7.5 mg PO BID PRN #20 tablet 06/11/23 busPIRone [Buspar] 10 mg PO BID 06/11/23 06/11/23 - Allergies Allergies/Adverse Reactions: Allergies Allergy/AdvReac Type Severity Reaction Status Date / Time No Known Drug Allergies Allergy Verified 06/11/23 14:38 - Social History Does the pt smoke?: No Smoking Status: Never smoker Does the pt drink ETOH?: Yes Does the pt have substance abuse?: No - Immunizations Immunizations are current?: Yes - POLST Patient has POLST: No PD ED PE NORMAL - Vitals Vital signs reviewed: Yes - General General: No acute distress, Well developed/nourished, Other (alert, pleasant) - HEENT HEENT: Atraumatic, PERRL, Moist mucous membranes, Pharynx benign - Neck Neck: Supple, no meningeal sign, No bony TTP - Cardiac Cardiac: RRR, Strong equal pulses - Respiratory Respiratory: No respiratory distress, Clear bilaterally - Abdomen Abdomen: Soft, Non tender, Non distended - Back Back: No spinal TTP (No midline tenderness to palpation or percussion over the cervical, thoracic and lumbar spines. There is tenderness over the right posterior ribs, approximately 9 and 10. No crepitus. No ecchymosis.) - Derm Derm: Warm and dry - Extremities Extremities: No deformity, No tenderness to palpate, Normal ROM s pain - Neuro Neuro: Other (alert, pleasantly confused) Eye Opening: Spontaneous Motor: Obeys Commands Verbal: Confused GCS Score: 14 Results - Vitals Vitals: Vital Signs - 24 hr 06/11/23 14:38 Temperature 36.6 C Heart Rate 65 Respiratory 16 Rate Blood Pressure 129/65 O2 Saturation 98 Oxygen O2 Source Room air - Rads (name of study) CT chest without contrast Relevant Findings:: Final report received, See rad report PD Medical Decision Making - ED course Complexity details: considered differential, d/w patient ED course: Patient with a right posterior eighth rib fracture. Pain well-controlled in the emergency department. He had a dose of oxycodone here without any issue. He request to go home at this time. Does not want to stay in the hospital. He is well-appearing, nontoxic. Afebrile. Walking well in the emergency department without pain. Breathing well. No hypoxia or respiratory distress. We will continue supportive care and have him follow-up with his PCP for further care. Patient counseled regarding signs and symptoms for which I believe and urgent re-evaluation would be necessary. Patient with good understanding of and agreement to plan and is comfortable going home at this time This document was made in part using voice recognition software. While efforts are made to proofread this document, sound alike and grammatical errors may occur. After discharge the half-way staff called and stated that the patient is allergic to oxycodone, this is not reflected on our records and he had no difficulty with the oxycodone here, they request a change in medication. We will change him to meloxicam and Lidoderm patches. Departure - Departure Disposition: 01 Home, Self Care Clinical Impression: Rib fracture Qualifiers: Encounter type: initial encounter Rib fracture type: single rib Fracture type: closed Laterality: right Qualified Code(s): S22.31XA - Fracture of one rib, right side, initial encounter for closed fracture Condition: Good Instructions: ED Fx Rib Follow-Up: your,doctor in 1 week [Other] Prescriptions: Lidocaine Patch 5% [Lidoderm Patch] 1 patch TOP DAILY PRN #10 patch PRN Reason: pain Meloxicam [Mobic] 7.5 mg PO BID PRN #20 tablet PRN Reason: Pain Comments: Marc appears to have a single rib fracture of his right eighth rib. We have prescribed pain medication for him. [facility] Please follow-up with his doctor for further care. Return if he worsens. PROCEDURE: Chest WO INDICATIONS: GLF, right rib pain TECHNIQUE: A CT scan of the chest was performed. Intravenous contrast media was not administered. Images were recorded and evaluated at appropriate window settings. Reformats: axial MIP of the chest, coronal and sagittal. For radiation dose reduction, the following was used: automated exposure control, adjustment of mA and/or kV according to patient size. COMPARISON: CT abdomen and pelvis dated 06/27/2022. FINDINGS: Image quality: Diagnostic. Chest wall and lower neck: No thyroid nodule which requires sonographic follow up. No axillary or supraclavicular adenopathy by size. Lungs and pleura: No consolidation. No pleural effusions. No pneumothorax. No suspicious pulmonary nodules which require follow up. Chronic volume loss and retraction bronchiectasis in the posterior right lung base. Mediastinum: Mild cardiomegaly. Severe coronary artery calcifications. No pericardial effusion. Mild aneurysmal dilatation of the ascending aorta, measuring 4.1 cm. No mediastinal adenopathy by size criteria. Bones: Mildly displaced anterior right eighth rib fracture along the lateral aspect of the chest wall. Reference image 352/12. Subtle deformity of the anterior right seventh rib may potentially represent a nondisplaced acute fracture, as well as an anterior right sixth rib deformity.Remote ACDF of the cervical spine. Old mild to moderate superior endplate compression fracture of T11. Upper Abdomen: There is mild right hydronephrosis and proximal hydroureter. Previously, there was a proximal ureteral stone, just below the lowest level of imaging on the current study. IMPRESSION: 1. Acute right eighth rib fracture. Possible nondisplaced very subtle acute fractures of the right sixth and seventh ribs, as well. 2. Mild cardiomegaly, severe coronary artery calcifications. 3. Mild aneurysmal dilatation of the ascending aorta. 4. Mild right hydronephrosis and proximal hydroureter. Cannot exclude continued presence of a right ureteral stone. Comment: Consider CT KUB to exclude a chronic right ureteral stone. Forms: PCP List Discharge Date/Time: 06/11/23 17:34
[2023-06-11 14:50] VITALS: BP 129/65; O2SAT 98
--- NOTE | 2023-06-11 17:01 | CT Report ---
PROCEDURE: Chest WO INDICATIONS: GLF, right rib pain TECHNIQUE: A CT scan of the chest was performed. Intravenous contrast media was not administered. Images were re corded and evaluated at appropriate window settings. Reformats: axial MIP of the chest, coronal and s agittal. For radiation dose reduction, the following was used: automated exposure control, adjustment of mA and/or kV according to patient size. COMPARISON: CT abdomen and pelvis dated 06/27/2022. FINDINGS: Image quality: Diagnostic. Chest wall and lower neck: No thyroid nodule which requires sonographic follow up. No axillary or sup raclavicular adenopathy by size. Lungs and pleura: No consolidation. No pleural effusions. No pneumothorax. No suspicious pulmonary n odules which require follow up. Chronic volume loss and retraction bronchiectasis in the posterior ri ght lung base. Mediastinum: Mild cardiomegaly. Severe coronary artery calcifications. No pericardial effusion. Mild aneurysmal dilatation of the ascending aorta, measuring 4.1 cm. No mediastinal adenopathy by size cri teria. Bones: Mildly displaced anterior right eighth rib fracture along the lateral aspect of the chest wall . Reference image 352/12. Subtle deformity of the anterior right seventh rib may potentially represen t a nondisplaced acute fracture, as well as an anterior right sixth rib deformity.Remote ACDF of the cervical spine. Old mild to moderate superior endplate compression fracture of T11. Upper Abdomen: There is mild right hydronephrosis and proximal hydroureter. Previously, there was a p roximal ureteral stone, just below the lowest level of imaging on the current study. IMPRESSION: 1. Acute right eighth rib fracture. Possible nondisplaced very subtle acute fractures of the right si xth and seventh ribs, as well. 2. Mild cardiomegaly, severe coronary artery calcifications. 3. Mild aneurysmal dilatation of the ascending aorta. 4. Mild right hydronephrosis and proximal hydroureter. Cannot exclude continued presence of a right u reteral stone. Comment: Consider CT KUB to exclude a chronic right ureteral stone. Reviewed by: Gume Vides MD on 06/11/2023 5:00 PM PST Approved by: Gume Vides MD on 06/11/2023 5:00 PM PST Station ID: [id number]
[2023-06-11] MEDS: oxyCODONE 5 MG TABLET PO STA (17:23)
== END 2023-06-11 17:34 | disposition home or self-care (01) ==
LOC: EDUNIT# → ED 14:15
DX: S22.31XA Fracture of one rib, right side, initial encounter for closed fracture (principal); W18.30XA Fall on same level, unspecified, initial encounter; Y92.10 Unspecified residential institution as the place of occurrence of the external cause; I25.10 Atherosclerotic heart disease of native coronary artery without angina pectoris; E78.00 Pure hypercholesterolemia, unspecified; F03.C0 Unspecified dementia, severe, without behavioral disturbance, psychotic disturbance, mood disturbance, and anxiety; G62.9 Polyneuropathy, unspecified; Z79.82 Long term (current) use of aspirin; Z79.899 Other long term (current) drug therapy
CPT/HCPCS: 99283; 99284

== ENCOUNTER 2023-06-11 17:34 | Outpatient (CLI) | payer MEDICARE, BC | END 2023-06-11 17:35 | disposition home or self-care (01) | LOC: EMS 17:34 | PROVIDERS: ATTEND Emergency Medicine | DX: R41.0 Disorientation, unspecified (principal); S22.31XA Fracture of one rib, right side, initial encounter for closed fracture; W18.30XA Fall on same level, unspecified, initial encounter; F03.90 Unspecified dementia, unspecified severity, without behavioral disturbance, psychotic disturbance, mood disturbance, and anxiety | CPT/HCPCS: A0425; A0428 ==

== ENCOUNTER 2023-06-24 09:07 | Outpatient (CLI) | payer MEDICARE, BC | END 2023-06-24 09:08 | disposition critical access hospital (66) | LOC: EMS 09:07 | DX: R39.89 Other symptoms and signs involving the genitourinary system (principal); R41.0 Disorientation, unspecified | CPT/HCPCS: A0425; A0429 ==

== ENCOUNTER 2023-06-24 09:25 | Emergency (ER) | payer MEDICARE, BC ==
--- NOTE | 2023-06-24 09:46 | ED Physician Documentation ---
PD HPI ABD PAIN - Stated complaint Stated Complaint: DIFF URINATING - Chief complaint Chief Complaint: Abd Pain - History obtained from History obtained from: Patient - History of Present Illness Timing - onset: How many days ago (few days of frequency urination without discomfort. Having to get up often for it. Tired due to less sleep. Also notes some dyspnea and some bilateral leg swelling. No calf pains.) Timing - duration: Days Timing - details: Gradual onset, Still present Quality: Cramping (in lower abd/bladder area, with feeling fullness and having to urinte often. Urination does decrease cramping.) Location: Suprapubic Improved by: Other (urination) Associated symptoms: No: Nausea, Vomiting, Constipation Similar symptoms before: Has not had sx before Review of Systems Constitutional: denies: Fever, Chills Nose: denies: Rhinorrhea / runny nose, Congestion Throat: denies: Sore throat Cardiac: reports: Pedal edema. denies: Chest pain / pressure, Calf pain Respiratory: reports: Dyspnea. denies: Cough GI: denies: Nausea, Vomiting, Constipation : reports: Frequency. denies: Dysuria, Hematuria PD PAST MEDICAL HISTORY - Past Medical History Cardiovascular: High cholesterol, Coronary artery disease Respiratory: Sleep apnea Neuro: Dementia, Peripheral neuropathy, Other Endocrine/Autoimmune: None GI: GERD, Hiatal hernia : Benign prostate hypertrophy HEENT: Other Psych: Other Musculoskeletal: Osteoarthritis Derm: None - Past Surgical History Past Surgical History: Yes Ortho: Knee replacement, Spine surgery, Other Cardiovascular: Coronary stent - Present Medications Home Medications: Ambulatory Orders Medication Instructions Recorded Confirmed Aspirin EC [Ecotrin] 81 mg PO DAILY 06/11/23 06/24/23 Meloxicam [Mobic] 7.5 mg PO BID PRN #20 tablet 06/11/23 busPIRone [Buspar] 10 mg PO BID 06/11/23 06/24/23 Acetaminophen [Aphen] 2 tab PO PRN PRN 06/24/23 06/24/23 Cholecalciferol [Vitamin D3] 3 tab PO DAILY 06/24/23 06/24/23 Escitalopram [Lexapro] 10 mg PO DAILY 06/24/23 06/24/23 Ferrous Gluconate 324 mg PO DAILY 06/24/23 06/24/23 Furosemide [Lasix] 20 mg PO DAILY 06/24/23 06/24/23 Losartan [Cozaar] 25 mg PO DAILY 06/24/23 06/24/23 Metoprolol Succinate [Toprol Xl] 25 mg PO DAILY 06/24/23 06/24/23 OLANZapine [Olanzapine] 5 mg PO BID 06/24/23 06/24/23 Tamsulosin [Flomax] 0.4 mg PO DAILY #20 cap 06/24/23 traZODone [Desyrel] 50 mg PO HS 06/24/23 06/24/23 - Allergies Allergies/Adverse Reactions: Allergies Allergy/AdvReac Type Severity Reaction Status Date / Time oxycodone Allergy Unknown Verified 06/24/23 10:10 - Social History Does the pt smoke?: No Smoking Status: Never smoker Does the pt drink ETOH?: Yes Does the pt have substance abuse?: No - Immunizations Immunizations are current?: Yes - POLST Patient has POLST: No PD ED PE NORMAL - Vitals Vital signs reviewed: Yes - General General: Alert and oriented X 3, No acute distress, Well developed/nourished - Cardiac Cardiac: RRR, No murmur - Respiratory Respiratory: No respiratory distress, Clear bilaterally - Abdomen Abdomen: Normal bowel sounds, Soft, Non distended, Other (some tenderness over bladder area, without notable distension. ) - Male Male : Other (normal external genitalia. No hernias noted. ) - Rectal Rectal: Deferred - Derm Derm: Normal color, Warm and dry - Extremities Extremities: Normal ROM s pain, No calf tenderness / cord, Other (mild edema pretibial on both legs. Normal color and cap refill in toes. ) Results - Vitals Vitals: Oxygen O2 Source Room air - Labs Labs: Laboratory Tests 06/24/23 06/24/23 06/24/23 10:00 10:05 10:05 WBC 6.2 RBC 4.30 L Hgb 13.4 L Hct 41.4 L MCV 96.3 H MCH 31.2 H MCHC 32.4 RDW 14.2 Plt Count 219 MPV 9.6 Neut # (Auto) 4.7 Lymph # (Auto) 0.8 L Mcnairy # (Auto) 0.5 Eos # (Auto) 0.2 Baso # (Auto) 0.0 Absolute Nucleated RBC 0.00 Nucleated RBC % 0.0 Sodium 138 Potassium 3.9 Chloride 102 Carbon Dioxide 30 Anion Gap 6.0 BUN 15 Creatinine 0.8 Estimated GFR (MDRD) 94 Glucose 107 H Calcium 9.6 Magnesium 1.8 Total Bilirubin 0.4 AST 18 ALT 17 Alkaline Phosphatase 71 B-Natriuretic Peptide 24 Total Protein 7.1 Albumin 4.0 Globulin 3.1 Albumin/Globulin Ratio 1.3 Lipase 34 Urine Color Urine Clarity Urine pH Ur Specific [place] Urine Protein Urine Glucose (UA) Urine Ketones Urine Occult Blood Urine Nitrite Urine Bilirubin Urine Urobilinogen Ur Leukocyte Esterase Ur Microscopic Review Urine Culture Comments 06/24/23 10:45 WBC RBC Hgb Hct MCV MCH MCHC RDW Plt Count MPV Neut # (Auto) Lymph # (Auto) Mcn[place] # (Auto) Eos # (Auto) Baso # (Auto) Absolute Nucleated RBC Nucleated RBC % Sodium Potassium Chloride Carbon Dioxide Anion Gap BUN Creatinine Estimated GFR (MDRD) Glucose Calcium Magnesium Total Bilirubin AST ALT Alkaline Phosphatase B-Natriuretic Peptide Total Protein Albumin Globulin Albumin/Globulin Ratio Lipase Urine Color YELLOW Urine Clarity CLEAR Urine pH 7.5 Ur Specific [place] 1.010 Urine Protein NEGATIVE Urine Glucose (UA) NEGATIVE Urine Ketones NEGATIVE Urine Occult Blood NEGATIVE Urine Nitrite NEGATIVE Urine Bilirubin NEGATIVE Urine Urobilinogen 0.2 (NORMAL) Ur Leukocyte Esterase NEGATIVE Ur Microscopic Review NOT INDICATED Urine Culture Comments NOT INDICATED - Rads (name of study) CXR Relevant Findings:: Prelim report reviewed (no focal airspoace consolidation. Atelectasis left lower seen similar in recent imaging. ), EMP independent interpretation of test PD Medical Decision Making - ED course Complexity details: reviewed results (UA without signs of infection. Bladder scanner showing slight retention of 217 ml post void. I don't think he needs a peña at this point, but to work on improved outflow. Add Flomax. CXR without edema, and normal BNP. Does not appear fluid overloaded.), considered differential, d/w patient Departure - Departure Disposition: 01 Home, Self Care Clinical Impression: Urinary frequency Condition: Stable Record reviewed to determine appropriate education?: Yes Instructions: ED Dysuria Uncertain Cause Follow-Up: Fabio Kraft MD [Provider Admit Priv/Credential] - Prescriptions: Tamsulosin [Flomax] 0.4 mg PO DAILY #20 cap Comments: Your urine looks clear without any signs of infection. You are able to urinate and get urine out. We checked a bladder scanner after your urination and you had a medium amount of urine still in the bladder but not enough to need a catheter or such at this point. I presume you are having some outflow blockage which commonly is related to enlarged prostate or such. We can try adding a prostate medicine such as tamsulosin daily and see if your urination improves in the near future (days to a week or so). Your chest x-ray is clear without any signs of fluid buildup. Your blood tests are good with no increased impairment in renal function. No signs of heart failure. It does not seem like you are fluid overloaded or in kidney failure. I sent your prescription to your preferred pharmacy. Follow-up with your primary care. You can also follow-up with urologist regarding the urinary frequency. Forms: PCP List Discharge Date/Time: 06/24/23 15:08
[2023-06-24 10:13] LABS: BASOPHILS % (AUTO) 0.5 %; EOSINOPHILS # (AUTO) 0.2 10^3/uL (0.0-0.7); EOSINOPHILS % (AUTO) 2.6 %; HCT - HEMATOCRIT 41.4 % (42.0-52.0); HGB - HEMOGLOBIN 13.4 g/dL (14.0-18.0); LYMPHOCYTES # (AUTO) 0.8 10^3/uL (1.5-3.5); LYMPHOCYTES % (AUTO) 12.9 %; MEAN CORPUSCULAR HEMOGLOBIN 31.2 pg (27.0-31.0); MEAN CORPUSCULAR HGB CONC 32.4 g/dL (32.0-36.0); MEAN CORPUSCULAR VOLUME 96.3 fL (80.0-94.0); MEAN PLATELET VOLUME 9.6 fL (7.4-11.4); MONOCYTES # (AUTO) 0.5 10^3/uL (0.0-1.0); MONOCYTES % (AUTO) 7.4 %; NEUTROPHILS # (AUTO) 4.7 10^3/uL (1.5-6.6); NEUTROPHILS % (AUTO) 76.3 %; PLT - PLATELET COUNT 219 10^3/uL (130-450); RED CELL DISTRIBUTION WIDTH 14.2 % (12.0-15.0); WHITE BLOOD COUNT 6.2 x10^3/uL (4.8-10.8)
[2023-06-24 10:41] LABS: ALBUMIN/GLOBULIN RATIO 1.3 (1.0-2.2); BILIRUBIN,TOTAL 0.4 mg/dL (0.2-1.0); CALCIUM 9.6 mg/dL (8.5-10.3); CREATININE 0.8 mg/dL (0.6-1.3); MAGNESIUM 1.8 mg/dL (1.7-2.3); POTASSIUM 3.9 mmol/L (3.5-4.5); TOTAL PROTEIN 7.1 g/dL (6.4-8.9)
--- NOTE | 2023-06-24 10:43 | XRAY Report ---
PROCEDURE: Chest 1V INDICATIONS: chest pain TECHNIQUE: One view of the chest was acquired. COMPARISON: CT chest 06/11/2023. FINDINGS: Surgical changes and devices: Partially evaluated and lower cervical spinal hardware.. Lungs and pleura: No pleural effusions or pneumothorax. Streaky opacity in the medial right midlung zone likely corresponding to atelectasis seen on recent CT. No focal airspace consolidation. Mediastinum: Mediastinal contours appear normal. Heart size is normal. Bones and chest wall: No suspicious bony lesions. Overlying soft tissues appear unremarkable. IMPRESSION: No focal airspace consolidation. Similar right lower lobe atelectasis better visualized on recent CT 06/11/2023 Reviewed by: Monserrat Toussaint MD on 06/24/2023 10:42 AM PST Approved by: Monserrat Toussaint MD on 06/24/2023 10:42 AM [facility] Station ID: [id number]
[2023-06-24 11:24] LABS: BILIRUBIN,URINE NEGATIVE (NEGATIVE); GLUCOSE, URINE (UA) NEGATIVE (NEGATIVE); KETONES,URINE (UA) NEGATIVE (NEGATIVE); LEUKOCYTE ESTERASE, URINE NEGATIVE (NEGATIVE); NITRITE,URINE NEGATIVE (NEGATIVE); OCCULT BLOOD,URINE NEGATIVE (NEGATIVE); PH,URINE 7.5 PH (5.0-7.5); PROTEIN,URINE NEGATIVE (NEGATIVE); UROBILINOGEN,URINE 0.2 (NORMAL) E.U./dL (NORMAL)
[2023-06-24 11:29] LABS: CLARITY,URINE CLEAR (CLEAR)
[2023-06-24 13:21] VITALS: O2SAT 96
[2023-06-24] MEDS: TAMSULOSIN 0.4 MG CAPSULE PO STA (13:33)
[2023-06-24 15:09] VITALS: BP 128/72
== END 2023-06-24 15:08 | disposition home or self-care (01) ==
LOC: EDUNIT# → ED 09:25
DX: R35.0 Frequency of micturition (principal); E78.00 Pure hypercholesterolemia, unspecified; I25.10 Atherosclerotic heart disease of native coronary artery without angina pectoris; F03.90 Unspecified dementia, unspecified severity, without behavioral disturbance, psychotic disturbance, mood disturbance, and anxiety; Z79.82 Long term (current) use of aspirin; Z79.899 Other long term (current) drug therapy
CPT/HCPCS: 36415; 71045; 80053; 81003; 83690; 83735; 83880; 85025; 99284; A9270; 81001; 87086

== ENCOUNTER 2023-06-24 15:07 | Outpatient (CLI) | payer MEDICARE, BC | END 2023-06-24 15:08 | LOC: EMS 15:07 | PROVIDERS: ATTEND Emergency Medicine | DX: R41.0 Disorientation, unspecified (principal); F03.90 Unspecified dementia, unspecified severity, without behavioral disturbance, psychotic disturbance, mood disturbance, and anxiety | CPT/HCPCS: A0425; A0428 ==